=== PATIENT | female | born 1970 | race Caucasian/White ===

== ENCOUNTER 2020-05-05 09:00 | Outpatient (RCR) | payer MEDICARE, MEDICAID, SELFPAY | END 2020-05-06 23:55 | disposition home or self-care (01) | LOC: HO.PAOS 09:00 | PROVIDERS: Visit Provider Counselor Mental Health | DX: F33.2 Major depressive disorder, recurrent severe without psychotic features (principal); F40.10 Social phobia, unspecified; Z86.59 Personal history of other mental and behavioral disorders | CPT/HCPCS: 90832 ==

== ENCOUNTER 2021-01-03 13:07 | Outpatient (REF) | payer MEDICARE, MEDICAID, SELFPAY ==
--- NOTE | ~2021-01-03 | MM_ITS ---
EXAMINATION: MM SCREENING DIGITAL BREAST TOMOSYNTHESIS, BILATERAL CLINICAL INFORMATION: Screening. Asymptomatic. The lifetime risk of breast cancer based on the Tyrer-Cuzick Model is 12%. COMPARISON: Mammography: 01/01/2020, 02/15/2018; targeted left breast ultrasound 01/06/2020 TECHNIQUE: Digital breast tomosynthesis is performed in both the craniocaudal and mediolateral oblique views along with computer-aided detection (CAD). Synthesized 2D images are generated from the tomosynthesis. Additional exaggerated left CC view is provided. FINDINGS: The breasts are extremely dense, which lowers the sensitivity of mammography (ACR BI-RADS breast composition Category d). There are no significant masses, abnormal calcifications, or other abnormalities. The seventh o'clock position left breast is decreased in size from prior exam. The axilla and skin contours are unremarkable. MM/MM tomosynthesis screening BI IMPRESSION: 1. No mammographic evidence of malignancy. 2. Cyst 5:00 left breast decreased in size. ASSESSMENT: BI-RADS 2: Benign RECOMMENDATION: Routine annual mammography screening. This patient's information was entered into a reminder system with a target due date for their next mammogram.
--- NOTE | 2021-01-03 14:04 | ECG_ITS ---
Test Reason : MED MONITORING Blood Pressure : / mmHG Vent. Rate : 095 BPM Atrial Rate : 095 BPM P-R Int : 144 ms QRS Dur : 080 ms QT Int : 352 ms P-R-T Axes : 062 080 023 degrees QTc Int : 442 ms Normal sinus rhythm T wave abnormality, consider inferior ischemia Abnormal ECG When compared with ECG of 04-SEP-2018 08:52, No significant change was found Referred By: Frank Sorto Electronically Signed By:DAMIEN DEVINE MD
[2021-01-03 14:47] LABS: MANUAL DIFF FLAG NO
[2021-01-03 14:51] LABS: Basophils Percent Auto 0.5 % (0-2); Eosinophils Percent Auto 0.2 % (0-4); Hematocrit 41.7 % (37-47); Hemoglobin 13.8 g/dl (12.0-16.0); Imm Gran Abs Auto 0.01 X10*3/uL (0.00-0.03); Imm Gran Pct Auto 0.2 % (0.0-0.4); Lymphocytes Absolute Auto 1.2 X10*3/uL (1.2-4.9); Lymphocytes Percent Auto 18.9 % (20-40); Mean Corpuscular HGB Conc 33.1 g/dl (31.0-35.0); Mean Corpuscular Hemoglobin 29.8 pg (27.0-33.0); Mean Corpuscular Volume 90.1 fL (80-98); Monocytes Absolute Auto 0.4 X10*3/uL (0.1-1.2); Monocytes Percent Auto 5.6 % (2-11); Neutrophils Absolute Auto 4.7 X10*3/uL (2.0-8.3); Neutrophils Percent Auto 74.6 % (45-73); Platelet Count 227 X10*3/uL (160-400); Red Blood Count 4.63 X10*6/uL (4.20-5.50); Red Cell Distribution Width 12.6 % (11.0-16.0); White Blood Count 6.3 X10*3/uL (4.8-10.8)
[2021-01-03 15:18] LABS: Alanine Aminotransferase 15 U/L (0-31); Albumin Level 4.6 g/dL (3.5-5.0); Alkaline Phosphatase 50 U/L (39-117); Anion Gap 13 (12-20); Aspartate Amino Transferase 17 U/L (5-31); Bilirubin Total 0.2 mg/dL (0.0-1.0); Blood Urea Nitrogen 7 mg/dL (9-16); Calcium 9.6 mg/dL (8.4-10.2); Carbon Dioxide 25 mmol/L (22-29); Chloride 106 mmol/L (96-108); Cholesterol 226 mg/dL; Estimated Glomerular Filt Rate > 60; Glucose Random 110 mg/dL (60-115); HDL Cholesterol 36 mg/dL; LDL Cholesterol Calculated 169 mg/dl; Potassium 4.5 mmol/L (3.3-5.1); Sodium 139 mmol/L (135-145); Total Protein 7.1 g/dL (6.5-8.0); Triglycerides 107 mg/dL
[2021-01-03 15:42] LABS: Thyroid Stimulating Hormone 0.38 uIU/mL (0.32-4.0)
[2021-01-03 16:18] LABS: Folate > 20.0 ng/mL (> or = 4.0); Vitamin B12 1318 pg/mL (200-900)
== END 2021-01-03 13:08 | disposition home or self-care (01) ==
LOC: HO.MAMMO 13:07
PROVIDERS: Absent Provider Psychiatry & Neurology Psychiatry; PCP Physician Assistant; Visit Provider Physician Assistant
DX: Z12.31 Encounter for screening mammogram for malignant neoplasm of breast (principal); F34.1 Dysthymic disorder; Z51.81 Encounter for therapeutic drug level monitoring; Z79.899 Other long term (current) drug therapy
CPT/HCPCS: 36415; 77063; 77067; 80053; 80061; 82607; 82746; 84443; 85025; 93005

== ENCOUNTER → 2021-01-27 15:35 | Outpatient (REF) | payer MEDICARE, MEDICAID, SELFPAY ==
--- NOTE | 2021-01-27 15:47 | ECG_ITS ---
Test Reason : recent t wave changes Blood Pressure : / mmHG Vent. Rate : 088 BPM Atrial Rate : 088 BPM P-R Int : 156 ms QRS Dur : 080 ms QT Int : 360 ms P-R-T Axes : 069 077 060 degrees QTc Int : 435 ms Normal sinus rhythm Normal ECG When compared with ECG of 03-JAN-2021 14:10, Nonspecific T wave abnormality no longer evident in Inferior leads Referred By: Frank Sorto Electronically Signed By:DUSTY JACOME
[2021-01-27 17:04] LABS: Anion Gap 10 (12-20); Blood Urea Nitrogen 11 mg/dL (9-16); Calcium 9.3 mg/dL (8.4-10.2); Carbon Dioxide 26 mmol/L (22-29); Chloride 103 mmol/L (96-108); Estimated Average Glucose 94 mg/dL; Estimated Glomerular Filt Rate > 60; Glucose Fasting 105 mg/dL (60-99); Hemoglobin A1c % 4.9 %; Potassium 4.4 mmol/L (3.3-5.1); Sodium 135 mmol/L (135-145)
[2021-01-31 01:11] LABS: Nortriptyline 74 mcg/L (50-150)
== END ==
LOC: HO.CARD 15:35
PROVIDERS: Absent Provider Psychiatry & Neurology Psychiatry; PCP Physician Assistant; Visit Provider Psychiatry & Neurology Psychiatry
DX: F34.1 Dysthymic disorder (principal); Z79.899 Other long term (current) drug therapy
CPT/HCPCS: 80048; 80307; 80335; 81025; 83036; 93005

== ENCOUNTER 2021-01-28 14:15 | Outpatient (REF) | payer MEDICARE, MEDICAID, SELFPAY ==
[2021-01-28 14:36] LABS: UPreg QC Valid YES; Urine Pregnancy NEGATIVE (NEGATIVE)
[2021-01-28 15:03] LABS: Amphetamine Screen Urine Not Detected (Not Detect); Barbiturates, Urine Not Detected (Not Detect); Benzodiazepines Screen Urine Not Detected (Not Detect); Cannabinoid Screen Urine Not Detected (Not Detect); Cocaine Screen Urine Not Detected (Not Detect); Fentanyl, urine Not Detected (Not Detect); Opiate Screen Urine Not Detected (Not Detect); Phencyclidine Screen Urine Not Detected (Not Detect)
== END 2021-01-28 14:16 | disposition home or self-care (01) ==
LOC: HO.LAB 14:15
PROVIDERS: PCP Physician Assistant; Visit Provider Psychiatry & Neurology Psychiatry
DX: F33.2 Major depressive disorder, recurrent severe without psychotic features (principal)
CPT/HCPCS: 80307; 81025

== ENCOUNTER 2021-03-17 16:28 | Outpatient (REF) | payer MEDICARE, MEDICAID, SELFPAY ==
[2021-03-17 17:14] LABS: Lithium 0.44 mmol/L (0.60-1.20)
[2021-03-17 17:23] LABS: Anion Gap 12 (12-20); Blood Urea Nitrogen 11 mg/dL (9-16); Calcium 9.7 mg/dL (8.4-10.2); Carbon Dioxide 26 mmol/L (22-29); Chloride 103 mmol/L (96-108); Estimated Glomerular Filt Rate 57; Glucose Random 78 mg/dL (60-115); Potassium 4.3 mmol/L (3.3-5.1); Sodium 137 mmol/L (135-145)
[2021-03-21 05:57] LABS: Nortriptyline 104 mcg/L (50-150)
== END 2021-03-17 16:29 | disposition home or self-care (01) ==
LOC: HO.LAB 16:28
PROVIDERS: PCP Physician Assistant; Visit Provider Psychiatry & Neurology Psychiatry
DX: F34.1 Dysthymic disorder (principal); Z79.899 Other long term (current) drug therapy
CPT/HCPCS: 36415; 80048; 80178; 80335

== ENCOUNTER 2021-04-29 13:52 | Outpatient (REF) | payer MEDICARE, MEDICAID, SELFPAY ==
[2021-04-29 15:36] LABS: Alanine Aminotransferase 18 U/L (0-31); Albumin Level 4.5 g/dL (3.5-5.0); Alkaline Phosphatase 56 U/L (39-117); Anion Gap 12 (12-20); Aspartate Amino Transferase 17 U/L (5-31); Bilirubin Total 0.5 mg/dL (0.0-1.0); Blood Urea Nitrogen 13 mg/dL (9-16); Calcium 9.9 mg/dL (8.4-10.2); Carbon Dioxide 27 mmol/L (22-29); Chloride 103 mmol/L (96-108); Estimated Glomerular Filt Rate > 60; Glucose Random 88 mg/dL (60-115); Potassium 4.4 mmol/L (3.3-5.1); Sodium 138 mmol/L (135-145); Total Protein 7.4 g/dL (6.5-8.0)
[2021-04-29 15:57] LABS: Thyroid Stimulating Hormone 0.31 uIU/mL (0.32-4.0)
[2021-05-03 14:16] LABS: Nortriptyline 87 mcg/L (50-150)
== END 2021-04-29 13:53 | disposition home or self-care (01) ==
LOC: HO.LAB 13:52
PROVIDERS: PCP Physician Assistant; Visit Provider Psychiatry & Neurology Psychiatry
DX: F34.1 Dysthymic disorder (principal)
CPT/HCPCS: 36415; 80053; 80178; 80335; 84443

== ENCOUNTER → 2021-06-20 08:56 | Outpatient (BNVA) | payer MEDICARE, MEDICAID, SELFPAY | LOC: CF 11:22 | PROVIDERS: PCP Physician Assistant; Referring Provider Physician Assistant; Visit Provider Nurse Practitioner Family | DX: Z12.11 Encounter for screening for malignant neoplasm of colon (principal) | CPT/HCPCS: 99202 ==

== ENCOUNTER 2021-06-21 12:42 | Outpatient (REF) | payer MEDICARE, MEDICAID, SELFPAY ==
[2021-06-21 13:49] LABS: Lithium 0.79 mmol/L (0.60-1.20)
[2021-06-21 14:02] LABS: Alanine Aminotransferase 22 U/L (0-31); Albumin Level 4.6 g/dL (3.5-5.0); Alkaline Phosphatase 60 U/L (39-117); Anion Gap 13 (12-20); Aspartate Amino Transferase 20 U/L (5-31); Bilirubin Total 0.5 mg/dL (0.0-1.0); Blood Urea Nitrogen 11 mg/dL (9-16); Calcium 10.5 mg/dL (8.4-10.2); Carbon Dioxide 27 mmol/L (22-29); Chloride 103 mmol/L (96-108); Estimated Glomerular Filt Rate > 60; Glucose Fasting 96 mg/dL (60-99); Potassium 4.5 mmol/L (3.3-5.1); Sodium 138 mmol/L (135-145); Total Protein 7.5 g/dL (6.5-8.0)
[2021-06-21 14:23] LABS: Thyroid Stimulating Hormone 0.03 uIU/mL (0.32-4.0)
[2021-06-21 15:37] LABS: Folate > 20.0 ng/mL (> or = 4.0); Vitamin B12 966 pg/mL (200-900)
[2021-06-26 08:06] LABS: Nortriptyline 105 mcg/L (50-150)
[2021-06-26 16:17] LABS: Vitamin D 25-OH, D2 <4 ng/mL; Vitamin D 25-OH, D3 24 ng/mL; Vitamin D 25-OH, Total 24 ng/mL (30-100)
== END 2021-06-21 12:43 | disposition home or self-care (01) ==
LOC: HO.LAB 12:42
PROVIDERS: Absent Provider Nurse Practitioner Family; PCP Physician Assistant; Visit Provider Psychiatry & Neurology Psychiatry
DX: Z51.81 Encounter for therapeutic drug level monitoring (principal); R19.7 Diarrhea, unspecified; E55.9 Vitamin D deficiency, unspecified; E03.9 Hypothyroidism, unspecified; F32.A Depression, unspecified; Z79.899 Other long term (current) drug therapy
CPT/HCPCS: 36415; 80053; 80178; 80335; 82306; 82607; 82746; 84443

== ENCOUNTER 2021-08-31 12:38 | Outpatient (REF) | payer MEDICARE, MEDICAID, SELFPAY ==
[2021-08-31 14:12] LABS: Estimated Average Glucose 103 mg/dL; Hemoglobin A1c % 5.2 %
[2021-08-31 14:14] LABS: Alanine Aminotransferase 25 U/L (0-31); Albumin Level 4.6 g/dL (3.5-5.0); Alkaline Phosphatase 63 U/L (39-117); Anion Gap 10 (12-20); Aspartate Amino Transferase 20 U/L (5-31); Bilirubin Total 0.3 mg/dL (0.0-1.0); Blood Urea Nitrogen 13 mg/dL (9-16); Calcium 10.1 mg/dL (8.4-10.2); Carbon Dioxide 29 mmol/L (22-29); Chloride 102 mmol/L (96-108); Cholesterol 280 mg/dL; Estimated Glomerular Filt Rate 50; Glucose Random 77 mg/dL (60-115); HDL Cholesterol 59 mg/dL; LDL Cholesterol Calculated 193 mg/dl; Potassium 4.5 mmol/L (3.3-5.1); Sodium 136 mmol/L (135-145); Total Protein 7.5 g/dL (6.5-8.0); Triglycerides 140 mg/dL
[2021-08-31 14:35] LABS: Free T4 (Free Thyroxine) 1.01 ng/dL (0.71-1.85); Thyroid Stimulating Hormone 8.41 uIU/mL (0.32-4.0)
[2021-08-31 14:40] LABS: Folate 18.6 ng/mL (> or = 4.0); Vitamin B12 726 pg/mL (200-900)
[2021-09-06 15:51] LABS: Nortriptyline 155 mcg/L (50-150)
== END 2021-08-31 12:39 | disposition home or self-care (01) ==
LOC: HO.LAB 12:38
PROVIDERS: PCP Physician Assistant; Visit Provider Psychiatry & Neurology Psychiatry
DX: F34.1 Dysthymic disorder (principal); Z51.81 Encounter for therapeutic drug level monitoring; Z79.899 Other long term (current) drug therapy
CPT/HCPCS: 36415; 80053; 80061; 80178; 80335; 82607; 82746; 83036; 84439; 84443

== ENCOUNTER 2021-11-09 11:52 | Day surgery (SDC) | payer MEDICARE, MEDICAID, SELFPAY ==
[2021-11-03 10:42] VITALS: BMI 24.9
--- NOTE | 2021-11-08 12:09 | P.CONAN_ITS ---
Documented by User: Concepcion Shah NP 11/08/21 12:10 HPI - Anesthesia Eval Consult details Narrative: 51yo F for Colonoscopy *Malignant Hyperthermia* PMFSH Active Problems Active Problems: All Active Problems (Updated 11/03/21 @ 10:36 by Lidia Davidson RN) Medicare annual wellness visit, initial (Acute ~03/23/21) Hypothyroidism (Acute) Colon cancer screening (Acute) Moderate depressive disorder (Acute) Severe anxiety (Acute) Cervical cancer screening declined (Acute) HLD (hyperlipidemia) (Acute) Past Medical History Medical History History of electroconvulsive therapy Malignant hyperthermia due to anesthesia Family History Family History Father Stroke Mother Ovarian cancer Brother Asthma Sister Hyperthyroidism Surgical History Surgical History History of open reduction and internal fixation (ORIF) procedure Hx of parotidectomy Social History Social History Housing: House Alcohol intake: former Patient Tobacco Use Status: Former Tobacco user Quit Date: 2019 e-Cigarette/Vaping Use: Never Used Second Hand Smoke Exposure: No Use of substances other than those prescribed or required for medical reasons: No Substance Use Type: Prescription Drugs Are you DNR?: No Advance Directives: No Advance Directives Information Provided: Yes Advance Directives on File: No service: No Current occupational status: unemployed Cognitive needs: No Hearing needs: No Vision needs: No Meds Allergies Allergy/AdvReac Type Severity Reaction Status Date / Time Anesthetics - Amide Type - Allergy Severe HYPERTHERMIA Verified 11/03/21 10:36 Select A FROM [ANESTHETICS - AMIDE TYPE] GENERAL ANESTHESIA Anesthetics - Ameena Type- Allergy Severe HYPERTHERMIA Verified 11/03/21 10:36 Parabens FROM [ANESTHETICS - AMEENA TYPE- GENERAL PARABENS] ANESTHESIA General anesthesias Allergy Severe malignant Verified 11/03/21 10:36 hyperthermia-age 9 at [facility],no [facility] A done[place] [place] Medications Medication Instructions Recorded Confirmed Last Taken Type buprenorphine 2 mg-naloxone 0.5 mg 1 film buccal DAILY 02/26/20 09/19/21 11/09/21 History sublingual film (Suboxone) ergocalciferol (vitamin D2) 1,250 1,250 mcg PO QWEEK 09/19/21 09/19/21 Unknown History mcg (50,000 unit) capsule esketamine 84 mg (28 mg x 3) nasal 0 mg intranasal 09/19/21 09/19/21 Unknown History spray (Spravato) lithium carbonate 450 mg 900 mg PO BEDTIME 09/19/21 09/19/21 Unknown History tablet,extended release nortriptyline 50 mg capsule 100 mg PO 09/19/21 09/19/21 Unknown History Exam Exam Date and Time: November 08, 2021 1209 Height,Weight and Vital Signs: Height 5 ft 8 in Weight 74.389 kg Pertinent Lab Results Pertinent Lab Results: Laboratory Tests 01/03/21 08/31/21 14:25 12:55 WBC 6.3 Hgb 13.8 Hct 41.7 Plt Count 227 Sodium 136 Potassium 4.5 Chloride 102 Carbon Dioxide 29 BUN 13 Creatinine 1.14 Narrative Narrative: EKG 01/2021 Vent. Rate : 088 BPM ? ? Atrial Rate : 088 BPM ?? P-R Int : 156 ms? QRS Dur : 080 ms ? ? QT Int : 360 ms ? ? ? P-R-T Axes : 069 077 060 degrees ?? QTc Int : 435 ms ? Normal sinus rhythm Normal ECG When compared with ECG of 03-JAN-2021 14:10, Nonspecific T wave abnormality no longer evident in Inferior leads Assessment and Plan Assessment Anesthesia Assessment: Chart Reviewed Documented by User: Annie Dee MD 11/09/21 13:23 [facility] Past Medical History Medical History History of electroconvulsive therapy Malignant hyperthermia due to anesthesia Family History Family History Father Stroke Mother Ovarian cancer Brother Asthma Sister Hyperthyroidism Family history of problems with anesthesia: No (MH precautions ) Surgical History Surgical History History of open reduction and internal fixation (ORIF) procedure Hx of parotidectomy History of Problems with Anesthesia: Yes (Malignant hyperthermia history aged 9 yrs old) Social History Social History Housing: House Alcohol intake: former Patient Tobacco Use Status: Former Tobacco user Quit Date: 2019 e-Cigarette/Vaping Use: Never Used Second Hand Smoke Exposure: No Use of substances other than those prescribed or required for medical reasons: No Substance Use Type: Prescription Drugs Are you DNR?: No Advance Directives: No Advance Directives Information Provided: Yes Advance Directives on File: No service: No Current occupational status: unemployed Cognitive needs: No Hearing needs: No Vision needs: No Meds Allergies Allergy/AdvReac Type Severity Reaction Status Date / Time Anesthetics - Amide Type - Allergy Severe HYPERTHERMIA Verified 11/03/21 10:36 Select A FROM [ANESTHETICS - AMIDE TYPE] GENERAL ANESTHESIA Anesthetics - Ameena Type- Allergy Severe HYPERTHERMIA Verified 11/03/21 10:36 Parabens FROM [ANESTHETICS - AMEENA TYPE- GENERAL PARABENS] ANESTHESIA General anesthesias Allergy Severe malignant Verified 11/03/21 10:36 hyperthermia-age 9 at [facility],no T and A done,[facility] [place] Medications Medication Instructions Recorded Confirmed Last Taken Type buprenorphine 2 mg-naloxone 0.5 mg 1 film buccal DAILY 02/26/20 09/19/21 11/09/21 History sublingual film (Suboxone) ergocalciferol (vitamin D2) 1,250 1,250 mcg PO QWEEK 09/19/21 09/19/21 Unknown History mcg (50,000 unit) capsule esketamine 84 mg (28 mg x 3) nasal 0 mg intranasal 09/19/21 09/19/21 Unknown History spray (Spravato) lithium carbonate 450 mg 900 mg PO BEDTIME 09/19/21 09/19/21 Unknown History tablet,extended release nortriptyline 50 mg capsule 100 mg PO 09/19/21 09/19/21 Unknown History Exam Height,Weight and Vital Signs: Height 5 ft 8 in Weight 74.389 kg Vital Signs Temp Pulse Resp BP Pulse Ox O2 Del Method 11/09/21 12:09 97.2 F 109 H 16 134/89 98 Room Air Airway Mallampati Class: III TM Dist: >3cm Neck ROM: Full Loose/Missing/Broken Teeth: Yes (Poor dentition. Many missing) Heart: RRR Lungs: CTAB Assessment and Plan Assessment Anesthesia Assessment: Anesthesia Plan Discussed Final Anesthetic Review Family History of Problems with Anesthesia: No (MH precautions ) History of Problems with Anesthesia: Yes (Malignant hyperthermia history aged 9 yrs old) NPO: Yes ASA Class: III Final Preanesthetic Review: No Changes in Pt Med Stat, Meds/Allgs Chart Reviewed, Consent Obtained/Reviewed and Anes Risks/Benef Reviewed Patient Risk: Intermediate Procedure Risk: Low Assessment/Block/Sedation in SS: Assess/Block/Sedation-SS Anesthetic Plan Anesthetic Plan: MAC: Disposition: Standard PACU
--- NOTE | 2021-11-09 12:08 | P.HPSUR_ITS ---
Pre-Procedural Eval Section A Date of Service: 11/09/21 Section B Chief Complaint: screening Relevant Family History (Specify if Yes): No Relevant Social History: None Present Medications: see Short Stay Collaborative assessment Medical History: Significant History (History of electroconvulsive therapy Malignant hyperthermia due to anesthesia) History of Previous Operations: Relevant previous surgery/procedure and date(s) (History of open reduction and internal fixation (ORIF) procedure Hx of parotidectomy) Allergies: Allergies Allergy/AdvReac Type Severity Reaction Status Date / Time Anesthetics - Amide Type - Allergy Severe HYPERTHERMIA Verified 11/03/21 10:36 Select A FROM [ANESTHETICS - AMIDE TYPE] GENERAL ANESTHESIA Anesthetics - Ameena Type- Allergy Severe HYPERTHERMIA Verified 11/03/21 10:36 Parabens FROM [ANESTHETICS - AMEENA TYPE- GENERAL PARABENS] ANESTHESIA General anesthesias Allergy Severe malignant Verified 11/03/21 10:36 hyperthermia-age 9 at [facility],no T [facility] A done,[facility] [place] Review of Systems Sugical H&P ROS: Negative: Constitution, Cardiovascular, Respiratory, Neurological, Psychiatric, Hem-Onc, Allergic/Immunologic, Gastrointestinal, Genitourinary, Musculoskeletal, Integumentary, Endocrine and Eyes/Ears/Nose/Throat Exam Surgical H&P Exam: Normal: HEENT, Normal: Heart, Normal: Lungs, Normal: Extremities, Normal: Abdomen, Normal: Skin and Normal: Neurological Plan I have reviewed the history and physical and performed a pertinent physical examination on my patient. No changes have occurred unless specified.
[2021-11-09 12:09] VITALS: BP 134/89; PULSE 109; RESP 16; TEMP 36.2; O2SAT 98
--- NOTE | 2021-11-09 12:09 | P.BOP_ITS ---
Brief Operative Note Date of Service: 11/09/21 Pre-op diagnosis: colon screening Post-op diagnosis: same Procedure: see op note Surgeon: Yusef Parada MD Anesthesia: MAC Was an Commutator V Ring Assembler used for this Procedure?: No Estimated blood loss (mL): 0 Condition: stable Disposition: PACU
--- NOTE | 2021-11-09 14:13 | P.OP_ITS ---
Operative Note Operative Note Date of Service: 11/09/21 Narrative: Operative Information Procedure Description: Colonoscopy Indication: screening Anesthesia: MAC COLONOSCOPY Instrument: Olympus variable stiffness pediatric scope 190L Colonoscopy Monitoring: Vital signs and clinical assessment, continuous EKG monitoring, Pulse oximetry, Carbon Dioxide monitoring and blood pressure monitoring were done throughout the procedure. Colon withdrawal time was 21 minutes. Procedure: The patient was placed in the left lateral decubitis position and pre-procedure medications were administered. After a digital rectal examination of the ano-rectum, the video colonoscope was inserted into the rectum and advanced through the colon to the cecum/TI. The colonoscope was slowly withdrawn in a retrograde panoramic fashion and the colon mucosa was carefully examined including a retroflexed view of the rectum. Findings and interventions are described below. Procedure Difficulty: easy Findings: Terminal Ileum-normal Cecum: 3-4 mm sessile polyp removed with cold forceps Ascending Colon: normal Transverse Colon -normal Descending Colon:normal Sigmoid Colon: 10-12 mm semi pedunculated polyp removed with hot snare and edges ablated with soft tip coag Rectum: Retroflexion with small internal hemorrhoids, grade I Anorectum - normal Colon preparation: [place] Bowel Preparation Scale Right colon; 2 Transverse colon: 2 Left colon; 1 (0 = Unprepared colon segment with mucosa not seen due to solid stool that cannot be cleared. 1 = Portion of mucosa of the colon segment seen, but other areas of the colon segment not well seen due to staining, residual stool and/or opaque liquid. 2 = Minor amount of residual staining, small fragments of stool and/or opaque liquid, but mucosa of colon segment seen well. 3 = Entire mucosa of colon segment seen well with no residual staining, small fragments of stool or opaque liquid) Impression and Post Procedure Diagnosis: polyps internal hemorrhoids Plan: High fiber diet leaflet Avoid straining at stool, epsom salts and sitz bath, anusol supps or cream Repeat Colonoscopy in 8-12 months due to fair to poor left sided prep or earlier if clinically indicated Above findings were reviewed with the patient and relevant handouts were provided if indicated.
[2021-11-09 14:15] VITALS: BP 84/50; PULSE 76; RESP 16; TEMP 36.1; O2SAT 97
[2021-11-09 14:30] VITALS: BP 111/74; PULSE 73; RESP 16; TEMP 36.1; O2SAT 97
== END 2021-11-09 15:22 | disposition home or self-care (01) ==
PROVIDERS: PCP Physician Assistant; Visit Provider Internal Medicine Gastroenterology
PROC: 0DJD8ZZ Inspection of Lower Intestinal Tract, Via Natural or Artificial Opening Endoscopic (ICD-10-PCS; CPT 45378; principal; 2021-11-09 13:00)
DX: Z12.11 Encounter for screening for malignant neoplasm of colon (principal); D12.5 Benign neoplasm of sigmoid colon; K63.5 Polyp of colon; K64.0 First degree hemorrhoids; F32.1 Major depressive disorder, single episode, moderate; F41.1 Generalized anxiety disorder; E55.9 Vitamin D deficiency, unspecified; Z79.899 Other long term (current) drug therapy; Z85.20 Personal history of malignant neoplasm of unspecified respiratory organ; Z87.891 Personal history of nicotine dependence; E78.5 Hyperlipidemia, unspecified
CPT/HCPCS: 45385; 45380; 88305

== ENCOUNTER 2022-01-04 13:21 | Outpatient (REF) | payer MEDICARE, MEDICAID, SELFPAY ==
--- NOTE | ~2022-01-04 | MM_ITS ---
EXAMINATION: MM SCREENING DIGITAL BREAST TOMOSYNTHESIS, BILATERAL CLINICAL INFORMATION: Screening. Asymptomatic. The lifetime risk of breast cancer based on the Tyrer-Cuzick Model is 10%. COMPARISON: Mammography: 01/03/2021, 01/01/2020, 02/15/2018; targeted left breast ultrasound 01/06/2020 TECHNIQUE: Digital breast tomosynthesis is performed in both the craniocaudal and mediolateral oblique views along with computer-aided detection (CAD). Synthesized 2D images are generated from the tomosynthesis. FINDINGS: The breasts are extremely dense, which lowers the sensitivity of mammography (ACR BI-RADS breast composition Category d). There are no significant masses, abnormal calcifications, or other abnormalities. Parenchymal pattern is similar to prior studies. There is no developing density or architectural abnormality. Breast tissue composition borders on heterogeneously dense. The axilla and skin contours are unremarkable. No significant changes. MM/MM tomosynthesis screening BI IMPRESSION: No mammographic evidence of malignancy. ASSESSMENT: BI-RADS 1: Negative RECOMMENDATION: Routine annual mammography screening. This patient's information was entered into a reminder system with a target due date for their next mammogram.
== END 2022-01-04 13:22 | disposition home or self-care (01) ==
LOC: HO.MAMMO 13:21
PROVIDERS: PCP Physician Assistant; Visit Provider Physician Assistant
DX: Z12.31 Encounter for screening mammogram for malignant neoplasm of breast (principal)
CPT/HCPCS: 77063; 77067

== ENCOUNTER → 2022-03-24 11:32 | Outpatient (BNVA) | payer OTHER, SELFPAY | PROVIDERS: PCP Physician Assistant; Visit Provider Psychiatry & Neurology Psychiatry | DX: F33.9 Major depressive disorder, recurrent, unspecified (principal); F40.10 Social phobia, unspecified; F45.22 Body dysmorphic disorder | CPT/HCPCS: 90833; 99212 ==

== ENCOUNTER 2022-03-25 10:18 | Outpatient (REF) | payer OTHER, SELFPAY ==
[2022-03-25 11:26] LABS: Cholesterol 168 mg/dL; HDL Cholesterol 52 mg/dL; LDL Cholesterol Calculated 103 mg/dl; Triglycerides 66 mg/dL
== END 2022-03-25 10:19 | disposition home or self-care (01) ==
LOC: HO.LAB 10:18
PROVIDERS: PCP Physician Assistant; Visit Provider Physician Assistant
DX: E03.9 Hypothyroidism, unspecified (principal); E78.2 Mixed hyperlipidemia
CPT/HCPCS: 36415; 80061; 84443

== ENCOUNTER → 2022-04-26 15:12 | Outpatient (BNVA) | payer OTHER, SELFPAY | PROVIDERS: PCP Physician Assistant; Visit Provider Psychiatry & Neurology Psychiatry | DX: F45.22 Body dysmorphic disorder (principal); F40.10 Social phobia, unspecified; F33.9 Major depressive disorder, recurrent, unspecified | CPT/HCPCS: Q3014 ==

== ENCOUNTER → 2022-06-12 12:07 | Outpatient (BNVA) | payer OTHER, SELFPAY | PROVIDERS: PCP Physician Assistant; Visit Provider Psychiatry & Neurology Psychiatry | DX: F33.9 Major depressive disorder, recurrent, unspecified (principal); F45.22 Body dysmorphic disorder; F40.10 Social phobia, unspecified | CPT/HCPCS: 99212 ==

== ENCOUNTER → 2022-07-26 13:00 | Outpatient (BNVA) | payer OTHER, SELFPAY | PROVIDERS: PCP Physician Assistant; Visit Provider Psychiatry & Neurology Psychiatry | DX: F33.2 Major depressive disorder, recurrent severe without psychotic features (principal); F45.22 Body dysmorphic disorder; F40.10 Social phobia, unspecified | CPT/HCPCS: 90833; Q3014 ==

== ENCOUNTER → 2022-09-26 14:34 | Outpatient (BNVA) | payer OTHER, SELFPAY | PROVIDERS: PCP Physician Assistant; Visit Provider Psychiatry & Neurology Psychiatry | DX: F33.9 Major depressive disorder, recurrent, unspecified (principal); F45.22 Body dysmorphic disorder; F40.10 Social phobia, unspecified | CPT/HCPCS: 99212 ==

== ENCOUNTER 2022-09-27 12:28 | Outpatient (REF) | payer OTHER, SELFPAY ==
--- NOTE | 2022-09-27 12:32 | ECG_ITS ---
Test Reason : hypothyroid Blood Pressure : / mmHG Vent. Rate : 059 BPM Atrial Rate : 059 BPM P-R Int : 148 ms QRS Dur : 082 ms QT Int : 408 ms P-R-T Axes : 049 069 057 degrees QTc Int : 403 ms Sinus bradycardia Otherwise normal ECG When compared with ECG of 27-JAN-2021 15:58, Vent. rate has decreased BY 29 BPM Referred By: Frank Sorto Electronically Signed By:DAMIEN DEVINE MD
[2022-09-27 12:47] LABS: MANUAL DIFF FLAG NO
[2022-09-27 13:32] LABS: Basophils Absolute Auto 0.1 X10*3/uL (0.0-0.2); Basophils Percent Auto 0.9 % (0-2); Eosinophils Percent Auto 0.2 % (0-4); Hematocrit 44.7 % (37.0-47.0); Hemoglobin 14.8 g/dl (12.0-16.0); Imm Gran Abs Auto 0.02 X10*3/uL (0.00-0.03); Imm Gran Pct Auto 0.3 % (0.0-0.4); Lymphocytes Absolute Auto 1.7 X10*3/uL (1.2-4.9); Lymphocytes Percent Auto 29.4 % (20-40); Mean Corpuscular HGB Conc 33.1 g/dl (31.0-35.0); Mean Corpuscular Hemoglobin 31.8 pg (27.0-33.0); Mean Corpuscular Volume 96.1 fL (80.0-98.0); Mean Platelet Volume 9.8 fL (9.4-12.3); Monocytes Absolute Auto 0.4 X10*3/uL (0.1-1.2); Monocytes Percent Auto 6.1 % (2-11); Neutrophils Absolute Auto 3.7 x10*3/uL (2.0-8.3); Neutrophils Percent Auto 63.1 % (45-73); Platelet Count 232 X10*3/uL (160-400); Red Blood Count 4.65 X10*6/uL (4.20-5.50); Red Cell Distribution Width 12.7 % (11.0-16.0); White Blood Count 5.8 X10*3/uL (4.8-10.8)
[2022-09-27 13:43] LABS: Estimated Average Glucose 100 mg/dL; Hemoglobin A1c % 5.1 %
[2022-09-27 14:22] LABS: Alanine Aminotransferase 27 U/L (0-31); Albumin Level 4.8 g/dL (3.5-5.0); Alkaline Phosphatase 50 U/L (39-117); Anion Gap 13 (12-20); Aspartate Amino Transferase 28 U/L (5-31); Bilirubin Total 0.6 mg/dL (0.0-1.0); Blood Urea Nitrogen 14 mg/dL (9-16); Calcium 9.7 mg/dL (8.4-10.2); Carbon Dioxide 27 mmol/L (22-29); Chloride 106 mmol/L (96-108); Estimated Glomerular Filt Rate > 60; Glucose Fasting 101 mg/dL (60-99); Glucose Random 101 mg/dL (60-115); Potassium 4.6 mmol/L (3.3-5.1); Sodium 141 mmol/L (135-145); Total Protein 7.2 g/dL (6.5-8.0)
[2022-09-27 14:40] LABS: Folate 17.2 ng/mL (> or = 4.0); Vitamin B12 772 pg/mL (200-900)
[2022-09-27 17:19] LABS: Free T4 (Free Thyroxine) 1.06 ng/dL (0.71-1.85)
== END 2022-09-27 12:29 | disposition home or self-care (01) ==
LOC: HO.LAB 12:28
PROVIDERS: PCP Physician Assistant; Visit Provider Psychiatry & Neurology Psychiatry
DX: E03.9 Hypothyroidism, unspecified (principal); E78.2 Mixed hyperlipidemia; F33.9 Major depressive disorder, recurrent, unspecified; F40.10 Social phobia, unspecified
CPT/HCPCS: 36415; 80053; 82607; 82746; 83036; 84439; 84443; 85025; 93005

== ENCOUNTER → 2022-11-14 13:22 | Outpatient (BNVA) | payer OTHER, SELFPAY | PROVIDERS: Visit Provider Nurse Practitioner Family | DX: Z01.818 Encounter for other preprocedural examination (principal); Z86.010 Personal history of colon polyps | CPT/HCPCS: 99212 ==

== ENCOUNTER 2023-01-10 13:21 | Outpatient (REF) | payer OTHER, SELFPAY | END 2023-01-10 13:22 | disposition home or self-care (01) | LOC: HO.MAMMO 13:21 | PROVIDERS: Visit Provider Physician Assistant | DX: Z12.31 Encounter for screening mammogram for malignant neoplasm of breast (principal) | CPT/HCPCS: 77063; 77067 ==

== ENCOUNTER → 2023-01-10 13:30 | Outpatient (BNV) | payer OTHER, SELFPAY | PROVIDERS: Visit Provider Radiology Diagnostic Radiology | DX: Z12.31 Encounter for screening mammogram for malignant neoplasm of breast (principal) | CPT/HCPCS: 77063; 77067 ==

== ENCOUNTER 2023-01-16 09:26 | Day surgery (SDC) | payer OTHER, SELFPAY ==
[2023-01-12 11:39] VITALS: BMI 23.6
--- NOTE | 2023-01-16 09:08 | P.CONAN_ITS ---
HPI - Anesthesia Eval Consult details Narrative: colonoscopy Malignant Hyperthermia hystory PMFSH Active Problems Active Problems: All Active Problems (Updated 11/14/22 @ 18:28 by JUDIE HerreraDUC) Tubulovillous adenoma (Acute) Opiate dependence (Acute) Tobacco dependence (Acute) Medicare annual wellness visit, subsequent (Acute) Body dysmorphic disorder (Acute) Social anxiety disorder (Acute) Major depression, recurrent, chronic (Acute) Medicare annual wellness visit, initial (Acute ~03/23/21) Hypothyroidism (Acute) Colon cancer screening (Acute) Moderate depressive disorder (Acute) Severe anxiety (Acute) Cervical cancer screening declined (Acute) HLD (hyperlipidemia) (Acute) Past Medical History Medical History (Updated 11/14/22 @ 18:28 by WINIFRED Herrera) Body dysmorphic disorder History of electroconvulsive therapy Major depression, recurrent, chronic Malignant hyperthermia due to anesthesia Social anxiety disorder Tubulovillous adenoma Family History Family History Father Stroke Mother Ovarian cancer Brother Asthma Sister Hyperthyroidism Family history of problems with anesthesia: No (MH precautions ) Surgical History Surgical History History of open reduction and internal fixation (ORIF) procedure Hx of colonoscopy Hx of parotidectomy History of Problems with Anesthesia: Yes (Malignant hyperthermia history aged 9 yrs old) Social History Social History Housing: House Alcohol intake: former Patient Tobacco Use Status: Former Tobacco user Quit Date: 2019 e-Cigarette/Vaping Use: Never Used Second Hand Smoke Exposure: No Substance Use Type: Prescription Drugs service: No Current occupational status: unemployed Cognitive needs: No Hearing needs: No Vision needs: No Meds Allergies Allergy/AdvReac Type Severity Reaction Status Date / Time Anesthetics - Amide Type - Allergy Severe Hyperthermia Verified 11/14/22 13:34 Select A from [ANESTHETICS - AMIDE TYPE] general anesthesia Anesthetics - Ameena Type- Allergy Severe hyperthermia Verified 11/14/22 13:34 Parabens from [ANESTHETICS - AMEENA TYPE- general PARABENS] anesthesia General anesthesias Allergy Severe malignant Verified 11/14/22 13:34 hyperthermia-age 9 at T [facility] A,no T and A done,[facility] [place] Medications Medication Instructions Recorded Confirmed Last Taken Type esketamine 84 mg (28 mg x 3) nasal 0 mg intranasal 09/19/21 09/26/22 Unknown History spray (Spravato) buprenorphine 8 mg-naloxone 2 mg 10 mg sublingual DAILY 06/12/22 01/12/23 Unknown History sublingual film Exam Exam Date and Time: January 16, 2023 0908 Height,Weight and Vital Signs: Height 5 ft 8 in Weight 70.307 kg Airway Mallampati Class: II TM Dist: >3cm Neck ROM: Limited Heart: rrr Lungs: cta Assessment and Plan Assessment Anesthesia Assessment: Anesthesia Plan Discussed and Chart Reviewed Final Anesthetic Review Family History of Problems with Anesthesia: No (MH precautions ) History of Problems with Anesthesia: Yes (Malignant hyperthermia history aged 9 yrs old) NPO: Yes ASA Class: III Final Preanesthetic Review: No Changes in Pt Med Stat, Meds/Allgs Chart Reviewed, Consent Obtained/Reviewed and Anes Risks/Benef Reviewed Patient Risk: Intermediate Procedure Risk: Intermediate Anesthetic Plan Anesthetic Plan: MAC: and Agree w/ Assess. and Plan Disposition: Standard PACU
[2023-01-16 09:56] VITALS: BP 113/70; PULSE 78; RESP 18; TEMP 36.4; O2SAT 96
--- NOTE | 2023-01-16 10:39 | MHC.SHP ---
Pre-Procedural Eval Section A Date of Service: 01/16/23 Section B Chief Complaint: screening Relevant Family History (Specify if Yes): No Relevant Social History: None Present Medications: see Short Stay Collaborative assessment Medical History: Significant History (Body dysmorphic disorder History of electroconvulsive therapy Major depression, recurrent, chronic Malignant hyperthermia due to anesthesia Social anxiety disorder Tubulovillous adenoma) History of Previous Operations: Relevant previous surgery/procedure and date(s) (History of open reduction and internal fixation (ORIF) procedure Hx of colonoscopy Hx of parotidectomy) Allergies: Allergies Allergy/AdvReac Type Severity Reaction Status Date / Time Anesthetics - Amide Type - Allergy Severe Hyperthermia Verified 11/14/22 13:34 Select A from [ANESTHETICS - AMIDE TYPE] general anesthesia Anesthetics - Ameena Type- Allergy Severe hyperthermia Verified 11/14/22 13:34 Parabens from [ANESTHETICS - AMEENA TYPE- general PARABENS] anesthesia General anesthesias Allergy Severe malignant Verified 11/14/22 13:34 hyperthermia-age 9 at [facility] A,no T and A done,[facility] [place] Review of Systems Sugical H&P ROS: Negative: Constitution, Cardiovascular, Respiratory, Neurological, Psychiatric, Hem-Onc, Allergic/Immunologic, Gastrointestinal, Genitourinary, Musculoskeletal, Integumentary, Endocrine and Eyes/Ears/Nose/Throat Exam Surgical H&P Exam: Normal: HEENT, Normal: Heart, Normal: Lungs, Normal: Extremities, Normal: Abdomen, Normal: Skin and Normal: Neurological Plan Diagnosis/Plan: Unchanged I have reviewed the history and physical and performed a pertinent physical examination on my patient. No changes have occurred unless specified. Time Spent With Patient Time: Total time managing care of this patient today ____ minutes.
--- NOTE | 2023-01-16 10:59 | P.OP_ITS ---
Operative Note Operative Note Date of Service: 01/16/23 Narrative: Operative Information Procedure Description: Colonoscopy Indication: hx of polyps Anesthesia: MAC COLONOSCOPY Instrument: Olympus variable stiffness pediatric scope 190L Colonoscopy Monitoring: Vital signs and clinical assessment, continuous EKG monitoring, Pulse oximetry, Carbon Dioxide monitoring and blood pressure monitoring were done throughout the procedure. Colon withdrawal time was 10 minutes. Procedure: The patient was placed in the left lateral decubitis position and pre-procedure medications were administered. After a digital rectal examination of the ano-rectum, the video colonoscope was inserted into the rectum and advanced through the colon to the cecum/TI. The colonoscope was slowly withdrawn in a retrograde panoramic fashion and the colon mucosa was carefully examined including a retroflexed view of the rectum. Findings and interventions are described below. Procedure Difficulty: easy Findings: Terminal Ileum-normal Cecum:normal Ascending Colon: normal Transverse Colon -normal Descending Colon:normal Sigmoid Colon: normal Rectum: Retroflexion with small internal hemorrhoids, grade I with skin tag Anorectum - normal Colon preparation: [place] Bowel Preparation Scale Right colon; 2 Transverse colon: 2 Left colon; 2 (0 = Unprepared colon segment with mucosa not seen due to solid stool that cannot be cleared. 1 = Portion of mucosa of the colon segment seen, but other areas of the colon segment not well seen due to staining, residual stool and/or opaque liquid. 2 = Minor amount of residual staining, small fragments of stool and/or opaque liquid, but mucosa of colon segment seen well. 3 = Entire mucosa of colon segment seen well with no residual staining, small fragments of stool or opaque liquid) Impression and Post Procedure Diagnosis: internal hemorrhoids Plan: High fiber diet leaflet Avoid straining at stool, epsom salts and sitz bath, anusol supps or cream Repeat Colonoscopy in 5 years due to prior hx of tubulovillous adenoma or earlier if clinically indicated Above findings were reviewed with the patient and relevant handouts were provided if indicated.
[2023-01-16 11:30] VITALS: BP 85/52; PULSE 62; RESP 16; TEMP 36.4; O2SAT 98
[2023-01-16 11:45] VITALS: BP 108/68; PULSE 69; RESP 16; TEMP 36.3; O2SAT 99
== END 2023-01-16 12:16 | disposition home or self-care (01) ==
PROVIDERS: PCP Physician Assistant; Visit Provider Internal Medicine Gastroenterology
PROC: 0DJD8ZZ Inspection of Lower Intestinal Tract, Via Natural or Artificial Opening Endoscopic (ICD-10-PCS; CPT 45378; principal; 2023-01-16 11:00)
DX: Z12.11 Encounter for screening for malignant neoplasm of colon (principal); Z86.010 Personal history of colon polyps; K64.0 First degree hemorrhoids; K64.4 Residual hemorrhoidal skin tags; Z88.4 Allergy status to anesthetic agent; F33.9 Major depressive disorder, recurrent, unspecified; F40.10 Social phobia, unspecified; F45.22 Body dysmorphic disorder; E78.5 Hyperlipidemia, unspecified; Z79.899 Other long term (current) drug therapy; Z87.891 Personal history of nicotine dependence
CPT/HCPCS: G0105

== ENCOUNTER → 2023-01-16 09:26 | Outpatient (BNV) | payer OTHER, SELFPAY | PROVIDERS: PCP Physician Assistant; Visit Provider Internal Medicine Gastroenterology | DX: Z12.11 Encounter for screening for malignant neoplasm of colon (principal); Z86.010 Personal history of colon polyps; K64.0 First degree hemorrhoids | CPT/HCPCS: G0105 ==

== ENCOUNTER 2023-02-02 14:49 | Outpatient (AMB) | payer OTHER, SELFPAY ==
--- NOTE | 2023-02-02 12:43 | MHC.OFFVISPS ---
Intake Intake Visit Reasons: depression Allergies Anesthetics - Amide Type - Select A [ANESTHETICS - AMIDE TYPE] Allergy (Severe, Verified 02/13/23 14:49) Hyperthermia from general anesthesia Anesthetics - Ameena Type- Parabens [ANESTHETICS - AMEENA TYPE- PARABENS] Allergy (Severe, Verified 02/13/23 14:49) hyperthermia from general anesthesia General anesthesias Allergy (Severe, Verified 02/13/23 14:49) malignant hyperthermia-age 9 at T and A,[place] [place]ication List - Last Reconciled 02/02/23 by Frank Sorto MD aripiprazole (Abilify) 5 mg PO DAILY bisacodyl (Dulcolax (bisacodyl)) 10 mg (2 x 5 mg) PO BEDTIME buprenorphine-naloxone 8-2 mg 10 mg sublingual DAILY ergocalciferol (vitamin D2) 1,250 mcg PO QWEEK esketamine (Spravato) 0 mg intranasal levothyroxine 137 mcg PO DAILY 30 days nicotine 1 patch transdermal Q24H 14 days polyethylene glycol 3350 (Miralax) 238 grams PO ONCE simvastatin 10 mg PO BEDTIME 90 days vortioxetine 20 mg PO DAILY HPI- Psychiatric Chief Complaint: depression HPI Narrative: Patient seen in psychiatric follow-up. Patient is mood is blunted difficulty with motivation and enjoying things but significantly improved from her worst. She continues on Suboxone Abilify was added for augmentation to Trintellix 20 mg. She does get weekly spravato at [facility] Past Psychiatric History: There is a history of significant depressive symptoms past treatment with ECT past treatment with multiple SSRIs Cymbalta Abilify Patsy Canalesosushma. Patient does have a history of significant suicide attempt Mental Status Exam Mental Status Exam Narrative: Mental Status Exam Narrative: Appearance: Casually dressed appropriately groomed Behavior: Cooperative psychomotor: Normal activity Speech: Clear Thought proccess logical Thought content: future oriented with but somewhat demoralized Mood: Some anxiety and dysphoria Affect: Appropriate to mood much han affect SI:denies HI:denies VH/AH:none Delusions: None Insight/judgment: improved Memory/cog: Intact Telehealth Telehealth Location of provider rendering services: practice address Location of patient: address on file Patient Identification confirmed using: Name, : Yes Telehealth method: video Patient verbally consented to treatment: Yes Patient verbally consented to billing insurance company: Yes Patient informed of any privacy concerns related to visit: Yes Minutes spent on Phone/Video with Pt.: 23 Assessment and Plan Assessment & Plan (1) Major depression, recurrent, chronic: Status: Acute Code(s): F33.9 - Major depressive disorder, recurrent, unspecified (2) Social anxiety disorder: Status: Acute Code(s): F40.10 - Social phobia, unspecified (3) Body dysmorphic disorder: Status: Acute Code(s): F45.22 - Body dysmorphic disorder Plan We had discussed increase Suboxone potentially a for its off-label antidepressant effects and some people. Patient to talk to her provider question Suboxone spravato interaction unclear increase Abilify to 10 mg Medications: Changed From aripiprazole 5 mg PO DAILY 30 tabs 1RF To aripiprazole 10 mg PO BEDTIME 30 tabs 1RF Counseling and coordination of Care Pt. Self Management counseling: Behavior activation Medication management counseling: Effectiveness, Side effects and Dosing range Diagnosis and Prognosis Counseling: Adequacy of current interventions Details: I spent [20] minutes reviewing the record, seeing the patient and documenting in the medical record. Counseling provided to the patient/caregiver as outlined below. Addressed patient/caregiver concerns regarding current medication regime including effective adherence. Addressed patient/caregiver concerns regarding diagnosis and prognosis including accuracy of diagnosis, prognosis over time, impact of diagnosis. Addressed patient/caregiver concerns regarding impact of recent stressors. PFSH Medical History Tubulovillous adenoma Body dysmorphic disorder Social anxiety disorder Major depression, recurrent, chronic History of electroconvulsive therapy Malignant hyperthermia due to anesthesia Surgical History Hx of colonoscopy Hx of parotidectomy History of open reduction and internal fixation (ORIF) procedure Family History Father Stroke Mother Ovarian cancer Brother Asthma Sister Hyperthyroidism Social History Housing: House Are you a primary resident care aid to a significant other at home: No Do you presently have visiting nurse or other home services: No Alcohol intake: former Patient Tobacco Use Status: Former Tobacco user Quit Date: 11/15/22 e-Cigarette/Vaping Use: Never Used Second Hand Smoke Exposure: No Substance Use Type: Prescription Drugs service: No Current occupational status: unemployed Cognitive needs: No Hearing needs: No Vision needs: No Social History: The patient is living with her mother she is on disability 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
== END 2023-02-02 15:04 | disposition home or self-care (01) ==
LOC: HO.HOP 14:49
PROVIDERS: PCP Physician Assistant; Visit Provider Psychiatry & Neurology Psychiatry
DX: F33.1 Major depressive disorder, recurrent, moderate (principal); F40.10 Social phobia, unspecified; F45.22 Body dysmorphic disorder
CPT/HCPCS: 99214

== ENCOUNTER → 2023-02-02 14:49 | Outpatient (BNVA) | payer OTHER, SELFPAY | PROVIDERS: PCP Physician Assistant; Visit Provider Psychiatry & Neurology Psychiatry ==

== ENCOUNTER 2023-02-13 14:40 | Outpatient (AMB) | payer OTHER, SELFPAY ==
--- NOTE | 2023-02-13 14:47 | A.OFFVIS_ITS ---
Intake Vital Signs 02/13/23 14:49 Height 5 ft 8 in Weight 176 lb 5.917 oz BMI 26.8 BP 114/77 Blood Pressure Location Lt brachial Position Sitting Pulse 71 Intake Visit Reasons: S/p colon-[place] Intake Note: Barbara presents in the office as a follow up colonoscopy. CC: No concerns since her procedure. Certified Physical Therapist Assistant Required: No Allergies Anesthetics - Amide Type - Select A [ANESTHETICS - AMIDE TYPE] Allergy (Severe, Verified 02/13/23 14:49) Hyperthermia from general anesthesia Anesthetics - Ameena Type- Parabens [ANESTHETICS - AMEENA TYPE- PARABENS] Allergy (Severe, Verified 02/13/23 14:49) hyperthermia from general anesthesia General anesthesias Allergy (Severe, Verified 02/13/23 14:49) malignant hyperthermia-age 9 at T and A,no T and A done,[facility] S/p colon-[place] HPI Details LAST VISIT Colon cancer screening As mentioned above in HPI patient had no issues with anesthesia in the past. Tubulovillous adenoma found and patient is due for colorectal screening. Will send patient to schedule appointment. Patient denies any melena, hematochezia, unintentional weight loss or ribbon like stools. Denies any dyspepsia, dysphagia or odynophagia. Discussed with patient the importance of good bowel prep. Will send patient script for Dulcolax and she can take it in the evening starting week before the procedure and the day before the procedure she can take it at noon time. Will do split MiraLax prep with 17:00 and 22:00 times. The importance of clear liquid diet day before the procedure discussed with patient. Tubulovillous adenoma Tubulovillous adenoma found on colonoscopy. Patient denies melena, hematochezia, unintentional weight loss or ribbon like stools. Patient will be sent for colonoscopy and I will see her after the procedure. Patient is agreeable to this plan and verbalizes understanding of instructions. She was given the opportunity to ask questions all questions answered. COLONOSCOPY Findings: Terminal Ileum-normal Cecum:normal Ascending Colon: normal Transverse Colon -normal Descending Colon:normal Sigmoid Colon: normal Rectum: Retroflexion with small internal hemorrhoids, grade I with skin tag Anorectum - normal Colon preparation: Weston Bowel Preparation Scale Right colon; 2 Transverse colon: 2 Left colon; 2 (0 = Unprepared colon segment with mucos a not seen due to solid stool that cannot be cleared. 1 = Portion of mucosa of the colon segme nt seen, but other areas of the colon segment not well seen due to staining, residual stool and/or opaque liquid. 2 = Minor amount of residual staining, s mall fragments of stool and/or opaque liquid, but mucosa of colon segment seen well. 3 = Entire mucosa of colon segment seen well with no residual staining, small fragments of stool or opaque liquid) Impression and Post Procedure Diagnosis: internal hemorrhoids Plan: High fiber diet leaflet Avoid straining at stool, epsom salts and sitz bath, anusol supps or cream Repeat Colonoscopy in 5 years due to prior hx of tubulovillous adenoma or earlier if clinically indicated TODAY'S VISIT Patient is here today for follow-up and to discuss colonoscopy results. Patient denies any ill effects from the prep, anesthesia or procedure itself. Patient had no polyps, however due to history of tubulovillous adenoma she will return for colorectal screening in 5 years. Patient is moving her bowels without any issues. Occasional constipation, patient is on Suboxone and is taking Colace every evening. Patient denies melena, hematochezia, unintentional weight loss or ribbon like stools. Patient denies any GI concerning symptoms. States that she is feeling well. [facility] Medical History Tubulovillous adenoma Body dysmorphic disorder Social anxiety disorder Major depression, recurrent, chronic History of electroconvulsive therapy Malignant hyperthermia due to anesthesia Surgical History Hx of colonoscopy Hx of parotidectomy History of open reduction and internal fixation (ORIF) procedure Family History Father Stroke Mother Ovarian cancer Brother Asthma Sister Hyperthyroidism Social History Housing: House Are you a primary rn wound care to a significant other at home: No Do you presently have visiting nurse or other home services: No Alcohol intake: former Patient Tobacco Use Status: Former Tobacco user Quit Date: 11/15/22 e-Cigarette/Vaping Use: Never Used Second Hand Smoke Exposure: No Substance Use Type: Prescription Drugs service: No Current occupational status: unemployed Cognitive needs: No Hearing needs: No Vision needs: No Review of Systems Const Denies weight gain and Denies weight loss ENT Reports no additional complaints, Denies dysphagia and Denies odynophagia Card Reports no additional complaints Resp Reports no additional complaints GI Denies abdominal pain, Denies belching, Denies melena, Denies bloating, Denies change in bowel habits, Denies dysphagia, Denies excessive flatus, Denies dyspepsia, Denies heartburn, Denies diarrhea, Denies loose stools, Denies nausea, Denies odynophagia and Denies vomiting Musc Reports no additional complaints Neuro Reports no additional complaints Psych Reports no additional complaints Endo Reports no additional complaints Physical Exam Vital Signs: Last Vital Signs Pulse 71 02/13/23 14:49 BP 114/77 02/13/23 14:49 BMI result Body Mass Index 26.8 Const General: healthy appearing, no acute distress and well developed Nutritional Appearance: well nourished Orientation/consciousness: patient oriented x3 HEENT Head: Yes normal to inspection, Yes normocephalic and Yes atraumatic Face and sinus: Yes normal facial exam Mouth: Normal oral and palatal mucosa present Throat: Yes posterior oropharynx normal, Yes tonsils normal and Yes uvula midline Eyes General: appearance normal, both eyes and all related structures Neck Neck: Yes normal visual inspection, Yes full ROM and Yes trachea midline Thyroid: Thyroid normal Resp Effort & Inspection: normal respiratory effort, able to speak in complete sentences, no tracheal deviation and symmetric chest movement Auscultation: clear to auscultation bilaterally Cardio Rate: regular rate Heart sounds: S1 normal heart sound present and S2 normal heart sound present GI Inspection: Yes normal to inspection and No distended Palpation (GI): Soft to palpation, not firm, nontender and No hepatosplenomegaly present Auscultation: normal bowel sounds General: Yes no CVA tenderness Back/Spine/Pelvis Back: no CVA tenderness Skin General skin exam: elasticity normal, turgor normal and dry skin Neuro General: patient oriented x3 Psych Appearance: grossly normal Mental Status: mental status grossly normal Assessment & Plan Assessment & Plan (1) Status post colonoscopy: Code(s): Z98.890 - Other specified postprocedural states Plan: Normal colonoscopy. Patient denies any ill effects from the prep, anesthesia or procedure itself. Colorectal screening in 5 years, sooner if clinically necessary. Patient will follow-up with us on as-needed basis. She is agreeable to this plan and verbalizes understanding of instructions. She was given the opportunity to ask questions and all questions answered. Thank you for allowing me to participate in her care Coding Level of Care Code Est Pt Level 3 (43548) Diagnoses Status post colonoscopy Z98.890 Time Spent (min) 25 Comment 15 minutes spent with patient and additional 10 minutes spent reviewing her records
[2023-02-13 14:49] VITALS: BP 114/77; PULSE 71; BMI 26.8
== END 2023-02-13 15:08 | disposition home or self-care (01) ==
PROVIDERS: PCP Physician Assistant; Visit Provider Nurse Practitioner Family
DX: Z98.890 Other specified postprocedural states (principal)
CPT/HCPCS: 99213

== ENCOUNTER → 2023-02-13 14:40 | Outpatient (BNVA) | payer OTHER, SELFPAY | PROVIDERS: PCP Physician Assistant; Visit Provider Nurse Practitioner Family | DX: Z98.890 Other specified postprocedural states (principal) | CPT/HCPCS: 99212 ==

== ENCOUNTER 2023-03-14 14:49 | Outpatient (AMB) | payer OTHER, SELFPAY ==
[2023-03-14 14:52] VITALS: BP 104/70; PULSE 72; O2SAT 98; BMI 27.4
--- NOTE | 2023-03-14 14:52 | A.OFFPC_ITS ---
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: No Accompanied by: Self / Same As Patient Allergies Anesthetics - Amide Type - Select A [ANESTHETICS - AMIDE TYPE] Allergy (Severe, Verified 03/14/23 15:04) Hyperthermia from general anesthesia Anesthetics - Ameena Type- Parabens [ANESTHETICS - AMEENA TYPE- PARABENS] Allergy (Severe, Verified 03/14/23 15:04) hyperthermia from general anesthesia General anesthesias Allergy (Severe, Verified 03/14/23 15:04) malignant hyperthermia-age 9 at T [facility] A,no T [facility] A done,[facility] Medication List - Last Reconciled 03/14/23 by Александр Chao PA-C aripiprazole 10 mg PO BEDTIME buprenorphine-naloxone 8-2 mg 10 mg sublingual DAILY docusate sodium (Colace) 100 mg PO DAILY ergocalciferol (vitamin D2) 1,250 mcg PO QWEEK esketamine (Spravato) 0 mg intranasal levothyroxine 137 mcg PO DAILY 30 days simvastatin 10 mg PO BEDTIME 90 days vortioxetine 20 mg PO DAILY Tobacco use date assessed: 09/13/22 Dental Screening Dental Screen Date: 03/14/23 Did you have a dental visit in the last 12 months?: Yes Did you have a dental problem in the last 6 months where you did not have access to dental care?: No Was dental information given to patient?: Patient has dentist HPI 6 MONTH F/U HPI Details Patient is a 52-year-old female here today for a follow-up visit Patient has a past medical history significant for major depressive disorder, social anxiety, history of opiate use disorder, tobacco dependency, hypothyroidism, hyperlipidemia. Concern--> Currently undergoing dental work and has been started on supplemental vitamins including vitamin-D. She would like to recheck her vitamin-D CHRONIC MEDICAL CONDITIONS--> Major depressive disorder: Continues to follow psychiatry. Now doing ketamin treatment for her Depression and she feels it is very helpful for her mood. Also has opiate dependency thus continues on Suboxone at a bit of a higher dose now. .. Former Tobacco dependency: Quit as of using nicotine patches.. CONGRATULATED HER ON THIS! .. Hyperlipidemia: Most recent lipid panel showing much improved total cholesterol and LDL, continues on statin therapy without side effect. .. Hypothyroidism: Continues on daily use of levothyroxine 125 mcg, most recent TSH slightly elevated at 5.. Patient has been able to reduce her weight since last office visit. Laboratory Tests 08/31/21 08/31/21 08/31/21 12:55 12:55 12:55 Cholesterol 280 D LDL Cholesterol, C alc 193 TSH 8.41 H 03/25/22 03/25/22 03/25/22 10:30 10:30 10:30 Cholesterol 168 D LDL Cholesterol, C alc 103 TSH 1.80 PFSH Medical History Tubulovillous adenoma Body dysmorphic disorder Social anxiety disorder Major depression, recurrent, chronic History of electroconvulsive therapy Malignant hyperthermia due to anesthesia Surgical History Hx of colonoscopy Hx of parotidectomy History of open reduction and internal fixation (ORIF) procedure Family History Father Stroke Mother Ovarian cancer Brother Asthma Sister Hyperthyroidism Social History Housing: House Are you a primary farm or ranch animal caretaker to a significant other at home: No Do you presently have visiting nurse or other home services: No Alcohol intake: former Patient Tobacco Use Status: Former Tobacco user Quit Date: 11/15/22 e-Cigarette/Vaping Use: Never Used Second Hand Smoke Exposure: No Substance Use Type: Prescription Drugs service: No Current occupational status: unemployed Cognitive needs: No Hearing needs: No Vision needs: No Questionnaire Thrive Questionnaire Date Thrive assessed: 09/19/21 JESUS-7 AMB Questionnaire JESUS-7 Date JESUS - 7 assessed: 09/13/22 Source: Developed by Drs. Nicola Alvarado, Natalie Downs, Javi Cardenas and colleagues, with an educational claude from [employer]. Review of Systems Const Denies headache(s) Eyes Denies loss of vision ENT Denies vertigo, Denies dizziness, Denies headache(s) and Denies sore throat Card Denies chest pain, Denies leg edema and Denies lightheadedness Resp Denies cough, Denies hemoptysis and Denies wheezing GI Denies abdominal pain, Denies melena, Denies constipation, Denies diarrhea and Denies vomiting Denies urinary frequency, Denies dysuria and Denies urinary urgency Musc Denies arthralgias, Denies joint swelling, Denies numbness and Denies tingling Neuro Denies Abnormal speech present, Denies behavioral changes, Denies vertigo, Denies dizziness, Denies headache(s), Denies loss of vision, Denies memory loss, Denies numbness and Denies tingling Psych Denies anxiety, Denies behavioral changes, Denies depression, Denies memory loss and Denies panic attacks Bahman/Lymph Denies easy bleeding and Denies easy bruising Aller/Immun Denies wheezing Physical exam (Primary Care) Vital Signs: Last Vital Signs Pulse 72 03/14/23 14:52 BP 104/70 03/14/23 14:52 Pulse Ox 98 03/14/23 14:52 Oxygen Delivery Method Room Air 03/14/23 14:52 BMI result Body Mass Index 27.4 Tobacco/Smoking Status: Tobacco use Status Tobacco use date assessed 09/13/22 03/14/23 14:52 Patient Tobacco Use Status Former Tobacco user 03/14/23 14:52 e-Cigarette/Vaping Use Never Used 03/14/23 14:52 Thrive Assessment: Date of Thrive Assessment Date Thrive assessed 09/19/21 03/14/23 14:52 Const General: healthy appearing, no acute distress, alert and awake Nutritional Appearance: well nourished Orientation/consciousness: oriented to person, oriented to place and oriented to time HENMT Ears: TM's normal bilaterally General nose exam: Normal nasal mucous membranes and turbinates present Eyes Conjunctivae: conjunctivae normal Sclerae: sclerae normal Pupils: Equal, round and reactive pupils present Neck Neck: Yes no lymphadenopathy and Yes no JVD Thyroid: Thyroid normal Carotids: no bruits Resp Effort & Inspection: normal respiratory effort and not tachypneic Auscultation: no crackles, no rales, no rhonchi and no wheezes Cardio Rate: regular rate Rhythm: regular rhythm Heart sounds: no murmurs and normal S1 and S2 GI Palpation (GI): Soft to palpation, nontender, no hepatomegaly and no splenomegaly Auscultation: normal bowel sounds Skin General skin exam: no rashes or lesions noted and dry skin Neuro General: oriented to person, oriented to place and oriented to time Cranial nerves: Yes Equal, round and reactive pupils present Speech: No Abnormal speech present Gait exam (Neuro): Normal gait present Motor exam (neuro): no tremor noted Extrem Right upper extremity: full ROM Left upper extremity: full ROM Right lower extremity: full ROM; no edema Left lower extremity: full ROM; no edema Psych Mental Status: mental status grossly normal Speech and movement: Normal speech and movement present Affect: normal affect Attitude: cooperative Thought process: Normal thought process present Office Procedures Flu Questionnaire Does the patient have a severe egg allergy?: No Does the patient have severe life threatening allergies?: No Does the patient have a fever or illness today?: No Has the patient ever had Guillain-[place] Syndrome?: No Has the patient ever had any past reaction to a flu shot?: No Immunizations flu vacc [id number] 6mos up(PF) 60 mcg(15 mcgx4)/0.5 mL IM syringe Performing Provider: Александр Chao PA-C Performing Location: [facility] Administered by: ENRRIQUE Buck on 03/14/23 15:00 Dose Route Admin Location Dispensed Lot Number Expiration Date NDC Sdv Pilot/Navigator/Dds Operator 0.5 mL IM Left Deltoid 0.5 mL [id number] 11/25/23 68679-338-81 [employer] VIS Given Date VIS Provided VIS Publication Date 03/14/23 Single Vaccine 20 Eligibility Eligibility Date Funding Source Not [facility] Eligible 03/14/23 Private Assessment and Plan Assessment & Plan (1) Moderate depressive disorder: Code(s): F32.1 - Major depressive disorder, single episode, moderate Plan: Continues to follow a therapist and a psychiatrist. Continues on ketamine nasal spray maintenance therapy. She reports she feels it is working feels much better with her depression. (2) Tobacco dependence: Code(s): F17.200 - Nicotine dependence, unspecified, uncomplicated Plan: Has resolved. Has quit smoking over the last 2 months (3) Hypothyroidism: Code(s): E03.9 - Hypothyroidism, unspecified Qualifiers: Hypothyroidism type: unspecified Qualified Code(s): E03.9 - Hypothyroidism, unspecified Plan: Most recent TSH slightly elevated at 5. Noted some weight gain since last office visit to which she attributes to her psychiatric medication.. Patient seems chemically and clinically euthyroid. Will continue to follow TSH to assure no (4) HLD (hyperlipidemia): Code(s): E78.5 - Hyperlipidemia, unspecified Qualifiers: Hyperlipidemia type: mixed hyperlipidemia Qualified Code(s): E78.2 - Mixed hyperlipidemia Plan: Patient's most recent lipid panel showing acceptable total cholesterol and LDL. Continues on low-dose simvastatin with good effect. Goal LDL to be below 160 (5) Opiate dependence: Code(s): F11.20 - Opioid dependence, uncomplicated Qualifiers: Substance use status: in remission Qualified Code(s): F11.21 - Opioid dependence, in remission Plan: Continues on Suboxone through her psychiatrist, has been in remission from any illicit opiates for quite a while now. (6) Vitamin D deficiency: Code(s): E55.9 - Vitamin D deficiency, unspecified Plan: Will check vitamin-D. Continues on high-dose weekly vitamin-D supplement and daily multivitamins. Orders: Orders Influenza [id number] Immunization 03/14/23 Z23 - Encounter for immunization Vitamin D 25-OH Total 03/14/23 E55.9 - Vitamin D deficiency, unspecified TSH reflex Free T4 03/14/23 E03.9 - Hypothyroidism, unspecified Lipid Panel 03/14/23 E78.2 - Mixed hyperlipidemia Comprehensive [place]. Panel Fast 03/14/23 E78.2 - Mixed hyperlipidemia Coding Level of Care Code Est Pt Level 4 (58972) Diagnoses Moderate depressive disorder F32.1 Tobacco dependence F17.200 Hypothyroidism, unspecified type E03.9 Hypothyroidism type: unspecified Mixed hyperlipidemia E78.2 Hyperlipidemia type: mixed hyperlipidemia Opioid dependence in remission F11.21 Substance use status: in remission Vitamin D deficiency E55.9
== END 2023-03-14 15:16 | disposition home or self-care (01) ==
PROVIDERS: Visit Provider Physician Assistant
DX: Z23 Encounter for immunization (principal)
CPT/HCPCS: 90471; 90686; 99214

== ENCOUNTER 2023-03-22 17:06 | Outpatient (AMB) | payer OTHER, SELFPAY ==
--- NOTE | 2023-03-22 17:31 | MHC.OFFVISPS ---
Intake Intake Visit Reasons: depression Allergies Anesthetics - Amide Type - Select A [ANESTHETICS - AMIDE TYPE] Allergy (Severe, Verified 03/14/23 15:04) Hyperthermia from general anesthesia Anesthetics - Ameena Type- Parabens [ANESTHETICS - AMEENA TYPE- PARABENS] Allergy (Severe, Verified 03/14/23 15:04) hyperthermia from general anesthesia General anesthesias Allergy (Severe, Verified 03/14/23 15:04) malignant hyperthermia-age 9 at [facility] A[place] [place] List - Last Reconciled 03/22/23 by Frank Sorto MD buprenorphine-naloxone 8-2 mg 10 mg sublingual DAILY docusate sodium (Colace) 100 mg PO DAILY ergocalciferol (vitamin D2) 1,250 mcg PO QWEEK esketamine (Spravato) 0 mg intranasal levothyroxine 137 mcg PO DAILY 30 days simvastatin 10 mg PO BEDTIME 90 days vortioxetine 20 mg PO DAILY HPI- Psychiatric Chief Complaint: depression HPI Narrative: Patient is seen in psychiatric follow-up. The patient's mood is flat depressed no SI she did increase Suboxone she has been feeling that she has not been getting the same stability from spravato that she had previously the patient did discontinue Abilify felt that had not been helpful and she had had significant weight gain which was quite problematic for her more flat less of ability to enjoy things denies any active self-harm Past Psychiatric History: There is a history of significant depressive symptoms past treatment with ECT past treatment with multiple SSRIs Cymbalta Abilify Rexulti Seroquel. Patient does have a history of significant suicide attempt Mental Status Exam Mental Status Exam Narrative: Mental Status Exam Narrative: Appearance: Casually dressed appropriately groomed Behavior: Cooperative psychomotor: Normal activity Speech: Clear Thought proccess logical Thought content: future oriented more restricted Mood: anxiety and dysphoria Affect: Flat SI:denies HI:denies VH/AH:none Delusions: None Insight/judgment: Somewhat impaired just discontinuing medication at times lithium Abilify Memory/cog: Intact Assessment and Plan Assessment & Plan (1) Major depression, recurrent, chronic: Status: Acute Code(s): F33.9 - Major depressive disorder, recurrent, unspecified (2) Opiate dependence: Status: Acute Qualifiers: Substance use status: in remission Qualified Code(s): F11.21 - Opioid dependence, in remission Code(s): F11.20 - Opioid dependence, uncomplicated (3) Body dysmorphic disorder: Status: Acute Code(s): F45.22 - Body dysmorphic disorder (4) Social anxiety disorder: Status: Acute Code(s): F40.10 - Social phobia, unspecified Plan There is a question of whether not Suboxone might be interfering with fact of miss of spravato Medications: Changed From ergocalciferol (vitamin D2) 1,250 mcg PO QWEEK 30 caps 1RF To ergocalciferol (vitamin D2) 1,250 mcg PO QWEEK 13 caps 1RF 3 months Refilled vortioxetine 20 mg PO DAILY 30 tabs 2RF Discontinued aripiprazole Discontinued Reason: Doctor's Order 10 mg PO BEDTIME 30 tabs 1RF Counseling and coordination of Care Medication management counseling: Effectiveness and Side effects Diagnosis and Prognosis Counseling: Problematic behaviors secondary to diagnosis and Adequacy of current interventions Details: I spent [15] minutes reviewing the record, seeing the patient and documenting in the medical record. Counseling provided to the patient/caregiver as outlined below. Addressed patient/caregiver concerns regarding current medication regime including effective adherence. Addressed patient/caregiver concerns regarding diagnosis and prognosis including accuracy of diagnosis, prognosis over time, impact of diagnosis. Addressed patient/caregiver concerns regarding impact of recent stressors. PFSH Medical History Tubulovillous adenoma Body dysmorphic disorder Social anxiety disorder Major depression, recurrent, chronic History of electroconvulsive therapy Malignant hyperthermia due to anesthesia Surgical History Hx of colonoscopy Hx of parotidectomy History of open reduction and internal fixation (ORIF) procedure Family History Father Stroke Mother Ovarian cancer Brother Asthma Sister Hyperthyroidism Social History Housing: House Are you a primary healthcare network consultant to a significant other at home: No Do you presently have visiting nurse or other home services: No Alcohol intake: former Patient Tobacco Use Status: Former Tobacco user Quit Date: 11/15/22 e-Cigarette/Vaping Use: Never Used Second Hand Smoke Exposure: No Substance Use Type: Prescription Drugs service: No Current occupational status: unemployed Cognitive needs: No Hearing needs: No Vision needs: No Social History: The patient is living with her mother she is on disability 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
== END 2023-03-22 17:45 | disposition home or self-care (01) ==
LOC: HO.HOP 17:06
PROVIDERS: PCP Physician Assistant; Visit Provider Psychiatry & Neurology Psychiatry
DX: F33.1 Major depressive disorder, recurrent, moderate (principal); F11.21 Opioid dependence, in remission; F45.22 Body dysmorphic disorder; F40.10 Social phobia, unspecified
CPT/HCPCS: 99213

== ENCOUNTER → 2023-03-22 17:06 | Outpatient (BNVA) | payer OTHER, SELFPAY | PROVIDERS: PCP Physician Assistant; Visit Provider Psychiatry & Neurology Psychiatry | DX: F33.9 Major depressive disorder, recurrent, unspecified (principal); F45.22 Body dysmorphic disorder; F40.10 Social phobia, unspecified; F11.21 Opioid dependence, in remission | CPT/HCPCS: 99212 ==

== ENCOUNTER 2023-05-11 12:57 | Outpatient (REF) | payer OTHER, SELFPAY ==
[2023-05-11 14:25] LABS: Alanine Aminotransferase 29 U/L (0-31); Albumin Level 4.8 g/dL (3.5-5.0); Alkaline Phosphatase 61 U/L (39-117); Anion Gap 15 (12-20); Aspartate Amino Transferase 25 U/L (5-31); Bilirubin Total 0.6 mg/dL (0.0-1.0); Blood Urea Nitrogen 12 mg/dL (9-16); Carbon Dioxide 25 mmol/L (22-29); Chloride 105 mmol/L (96-108); Cholesterol 181 mg/dL (<200); Estimated Glomerular Filt Rate > 60; Glucose Fasting 107 mg/dL (60-99); HDL Cholesterol 59 mg/dL (>40); LDL Cholesterol Calculated 103 mg/dL (<100); Potassium 4.6 mmol/L (3.3-5.1); Sodium 140 mmol/L (135-145); Total Protein 7.8 g/dL (6.5-8.0); Triglycerides 99 mg/dL (<150)
[2023-05-11 14:40] LABS: TSH reflex Free T4 1.23 uIU/mL (0.32-4.0); Vitamin D 25-OH Total 93.1 ng/mL (>30)
== END 2023-05-11 12:58 | disposition home or self-care (01) ==
LOC: HO.LAB 12:57
PROVIDERS: PCP Physician Assistant; Visit Provider Physician Assistant
DX: E78.2 Mixed hyperlipidemia (principal); E55.9 Vitamin D deficiency, unspecified; E03.9 Hypothyroidism, unspecified
CPT/HCPCS: 36415; 80053; 80061; 82306; 84443

== ENCOUNTER 2023-06-25 17:29 | Outpatient (AMB) | payer MEDICARE, MEDICAID, SELFPAY ==
--- NOTE | 2023-06-25 21:30 | MHC.OFFVISPS ---
Intake Intake Visit Reasons: depression Allergies Anesthetics - Amide Type - Select A [ANESTHETICS - AMIDE TYPE] Allergy (Severe, Verified 03/14/23 15:04) Hyperthermia from general anesthesia Anesthetics - Ameena Type- Parabens [ANESTHETICS - AMEENA TYPE- PARABENS] Allergy (Severe, Verified 03/14/23 15:04) hyperthermia from general anesthesia General anesthesias Allergy (Severe, Verified 03/14/23 15:04) malignant hyperthermia-age 9 at [facility],[place] [facility] [place] [place]PI- Psychiatric Chief Complaint: depression HPI Narrative: Patient seen psychiatric follow-up she continues to live with her mother and this is generally going well. She is somewhat isolated she is now on a lower dose of Suboxone because interaction between ketamine Suboxone that may make the S ketamine less effective patient flat somewhat a motivational no SI has not yet connected with therapist Past Psychiatric History: There is a history of significant depressive symptoms past treatment with ECT past treatment with multiple SSRIs Cymbalta Abilify Rexulti Seroquel. Patient does have a history of significant suicide attempt Mental Status Exam Mental Status Exam Narrative: Mental Status Exam Narrative: Appearance: Casually dressed appropriately groomed Behavior: Cooperative psychomotor: Normal activity Speech: Clear Thought proccess logical Thought content: future oriented more restricted Mood: anxiety and dysphoria Affect: Flat SI:denies HI:denies VH/AH:none Delusions: None Insight/judgment: Generally good Memory/cog: Intact Telehealth Telehealth Location of provider rendering services: practice address Location of patient: address on file Patient Identification confirmed using: Name, : Yes Telehealth method: video Patient verbally consented to treatment: Yes Patient verbally consented to billing insurance company: Yes Patient informed of any privacy concerns related to visit: Yes Minutes spent on Phone/Video with Pt.: 23 Assessment and Plan Assessment & Plan (1) Major depression, recurrent, chronic: Status: Acute Code(s): F33.9 - Major depressive disorder, recurrent, unspecified (2) Social anxiety disorder: Status: Acute Code(s): F40.10 - Social phobia, unspecified Plan Start Vraylar 1.5 mg for treatment resistant depression. Had gained weight on Abilify did better on the combination of Abilify and Trintellix Suboxone now 4 mg monitor response follow-up 4-8 weeks Medications: New cariprazine (Vraylar) 1.5 mg PO DAILY 30 caps 2RF Counseling and coordination of Care Details: I spent [] minutes reviewing the record, seeing the patient and documenting in the medical record. Counseling provided to the patient/caregiver as outlined below. Addressed patient/caregiver concerns regarding current medication regime including effective adherence. Addressed patient/caregiver concerns regarding diagnosis and prognosis including accuracy of diagnosis, prognosis over time, impact of diagnosis. Addressed patient/caregiver concerns regarding impact of recent stressors. PFSH Medical History Tubulovillous adenoma Body dysmorphic disorder Social anxiety disorder Major depression, recurrent, chronic History of electroconvulsive therapy Malignant hyperthermia due to anesthesia Surgical History Hx of colonoscopy Hx of parotidectomy History of open reduction and internal fixation (ORIF) procedure Family History Father Stroke Mother Ovarian cancer Brother Asthma Sister Hyperthyroidism Social History Housing: House Are you a primary healthcare administrative assistant to a significant other at home: No Do you presently have visiting nurse or other home services: No Alcohol intake: former Patient Tobacco Use Status: Former Tobacco user Quit Date: 11/15/22 e-Cigarette/Vaping Use: Never Used Second Hand Smoke Exposure: No Substance Use Type: Prescription Drugs service: No Current occupational status: unemployed Cognitive needs: No Hearing needs: No Vision needs: No Social History: The patient is living with her mother she is on 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
== END 2023-06-25 17:30 | disposition home or self-care (01) ==
LOC: HO.HOP 17:29
PROVIDERS: PCP Physician Assistant; Visit Provider Psychiatry & Neurology Psychiatry
DX: F33.1 Major depressive disorder, recurrent, moderate (principal); F40.10 Social phobia, unspecified
CPT/HCPCS: 99214

== ENCOUNTER → 2023-06-25 17:29 | Outpatient (BNVA) | payer OTHER, SELFPAY | PROVIDERS: PCP Physician Assistant; Visit Provider Psychiatry & Neurology Psychiatry ==

== ENCOUNTER 2023-07-26 15:38 | Outpatient (AMB) | payer MEDICARE, MEDICAID, SELFPAY ==
--- NOTE | 2023-07-26 15:52 | A.OFFPSYCH_ITS ---
Intake Intake Visit Reasons: depression Allergies Anesthetics - Amide Type - Select A [ANESTHETICS - AMIDE TYPE] Allergy (Severe, Verified 03/14/23 15:04) Hyperthermia from general anesthesia Anesthetics - Ameena Type- Parabens [ANESTHETICS - AMEENA TYPE- PARABENS] Allergy (Severe, Verified 03/14/23 15:04) hyperthermia from general anesthesia General anesthesias Allergy (Severe, Verified 03/14/23 15:04) malignant hyperthermia-age 9 at [facility],no [facility] done,[facility] [place] HPI- Psychiatric Chief Complaint: depression HPI Narrative: Pt seen in f/u mood has been better generally looking to perhaps do spravato 1 x week feels better on vraylar on 1.5 mg gets up early feels more invigorated energy for the day . 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 She is again looking to reach out to be an individual therapy Past Psychiatric History: There is a history of significant depressive symptoms past treatment with ECT past treatment with multiple SSRIs Thelma Curiel. Patient does have a history of significant suicide attempt Mental Status Exam Mental Status Exam Narrative: Mental Status Exam Narrative: Appearance: Casually dressed appropriately groomed/no abnormal movements noted no oral facial dyskinesia Behavior: Cooperative psychomotor: Normal activity Speech: Clear Thought proccess logical Thought content: future oriented self deprecating concerns regarding how she appears Mood: anxiety and dysphoria Affect: Flat SI:denies HI:denies VH/AH:none Delusions: None Insight/judgment: Generally good Memory/cog: Intact Assessment and Plan Assessment & Plan (1) Major depression, recurrent, chronic: Status: Acute Code(s): F33.9 - Major depressive disorder, recurrent, unspecified (2) Body dysmorphic disorder: Status: Acute Code(s): F45.22 - Body dysmorphic disorder (3) Social anxiety disorder: Status: Acute Code(s): F40.10 - Social phobia, unspecified Plan Patient doing better on Vraylar 1.5 mg aware of risks benefits alternatives. Suboxone has been decreased by Dr. Ayala in case it is interfering with effectiveness of spravato continue Trintellix Medications: Refilled vortioxetine 20 mg PO DAILY 90 tabs 1RF cariprazine (Vraylar) 1.5 mg PO DAILY 90 caps 1RF Counseling and coordination of Care Details: I spent [] minutes reviewing the record, seeing the patient and documenting in the medical record. Counseling provided to the patient/caregiver as outlined below. Addressed patient/caregiver concerns regarding current medication regime including effective adherence. Addressed patient/caregiver concerns regarding diagnosis and prognosis including accuracy of diagnosis, prognosis over time, impact of diagnosis. Addressed patient/caregiver concerns regarding impact of recent stressors. PFSH Medical History Tubulovillous adenoma Body dysmorphic disorder Social anxiety disorder Major depression, recurrent, chronic History of electroconvulsive therapy Malignant hyperthermia due to anesthesia Surgical History Hx of colonoscopy Hx of parotidectomy History of open reduction and internal fixation (ORIF) procedure Family History Father Stroke Mother Ovarian cancer Brother Asthma Sister Hyperthyroidism Social History Housing: House Are you a primary professional healthcare representative to a significant other at home: No Do you presently have visiting nurse or other home services: No Alcohol intake: former Patient Tobacco Use Status: Former Tobacco user Quit Date: 11/15/22 e-Cigarette/Vaping Use: Never Used Second Hand Smoke Exposure: No Substance Use Type: Prescription Drugs service: No Current occupational status: unemployed Cognitive needs: No Hearing needs: No Vision needs: No Social History: The patient is living with her mother 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
== END 2023-07-26 16:45 | disposition home or self-care (01) ==
LOC: HO.HOP 15:38
PROVIDERS: PCP Physician Assistant; Visit Provider Psychiatry & Neurology Psychiatry
DX: F33.9 Major depressive disorder, recurrent, unspecified (principal); F45.22 Body dysmorphic disorder; F40.10 Social phobia, unspecified
CPT/HCPCS: 90833; 99213

== ENCOUNTER → 2023-07-26 15:38 | Outpatient (BNVA) | payer MEDICARE, SELFPAY | PROVIDERS: PCP Physician Assistant; Visit Provider Psychiatry & Neurology Psychiatry | DX: F33.9 Major depressive disorder, recurrent, unspecified (principal); F45.22 Body dysmorphic disorder; F40.10 Social phobia, unspecified | CPT/HCPCS: 99212 ==

== ENCOUNTER 2023-09-13 13:57 | Outpatient (AMB) | payer OTHER, SELFPAY ==
[2023-09-13 14:03] VITALS: BP 104/60; PULSE 94; O2SAT 98; BMI 26.8
--- NOTE | 2023-09-13 14:03 | MHC.PC.OV ---
Vital Signs 09/13/23 14:03 Height 5 ft 8 in Weight 176 lb 4 oz BMI 26.8 BP 104/60 Blood Pressure Location Rt brachial Position Sitting Pulse 94 Pulse Source Pulse Oximeter Pulse Oximetry (%) 98 Oxygen Delivery Method Room Air Intake Visit Reasons: f/u hypothyroid Nozzle Operator Required: No Accompanied by: Self / Same As Patient Allergies Anesthetics - Amide Type - Select A [ANESTHETICS - AMIDE TYPE] Allergy (Severe, Verified 09/13/23 14:17) Hyperthermia from general anesthesia Anesthetics - Ameena Type- Parabens [ANESTHETICS - AMEENA TYPE- PARABENS] Allergy (Severe, Verified 09/13/23 14:17) hyperthermia from general anesthesia General anesthesias Allergy (Severe, Verified 09/13/23 14:17) malignant hyperthermia-age 9 at T and A,[place] [place] List - Last Reconciled 09/13/23 by Александр Chao PA-C buprenorphine-naloxone 8-2 mg 0.5 film sublingual DAILY cariprazine (Vraylar) 1.5 mg PO DAILY docusate sodium (Colace) 100 mg PO DAILY ergocalciferol (vitamin D2) 1,250 mcg PO QWEEK 3 months esketamine (Spravato) 0 mg intranasal levothyroxine 137 mcg PO DAILY 30 days simvastatin 10 mg PO BEDTIME 90 days vortioxetine 20 mg PO DAILY Tobacco use date assessed: 09/13/23 Dental Screening Dental Screen Date: 09/13/23 Did you have a dental visit in the last 12 months?: No Did you have a dental problem in the last 6 months where you did not have access to dental care?: No Was dental information given to patient?: Patient has dentist HPI f/u hypothyroid HPI Details Patient is a 53-year-old female here today for a follow-up visit Patient has a past medical history significant for major depressive disorder, social anxiety, history of opiate use disorder, tobacco dependency, hypothyroidism, hyperlipidemia. Concern--> reports having issues with excessive sweatiness on minimal exertion. She reports this has been a problem for her for many years. She denies any chest pain shortness for breath during her episodes of diaphoresis. She is assuming this is from Suboxone as a side effect. She is interested in starting a medication for this. She also reports she has been told she has slightly elevated LFTs and wonders if this is due to statin therapy. Will recheck labs including lipid panel and if LFTs elevated will consider discontinuing statin. CHRONIC MEDICAL CONDITIONS--> Major depressive disorder: Continues to follow psychiatry. Now doing ketamin treatment for her Depression and she feels it is very helpful for her mood. Also has opiate dependency thus continues on Suboxone at a bit of a higher dose now. .. Former Tobacco dependency: Quit as of using nicotine patches.. CONGRATULATED HER ON THIS! .. Hyperlipidemia: Most recent lipid panel showing much improved total cholesterol and LDL, continues on statin therapy without side effect. .. Hypothyroidism: Continues on daily use of levothyroxine 125 mcg, most recent TSH was acceptable. Will continue to follow TSH to assure normal. [facility] Medical History (Updated 09/17/23 @ 07:31 by Александр Chao PA-C) Tobacco dependence Tubulovillous adenoma Body dysmorphic disorder Social anxiety disorder Major depression, recurrent, chronic History of electroconvulsive therapy Malignant hyperthermia due to anesthesia Surgical History Hx of colonoscopy Hx of parotidectomy History of open reduction and internal fixation (ORIF) procedure Family History Father Stroke Mother Ovarian cancer Brother Asthma Sister Hyperthyroidism Social History Housing: House Are you a primary cardiac care nurse to a significant other at home: No Do you presently have visiting nurse or other home services: No Alcohol intake: former Patient Tobacco Use Status: Former Tobacco user Quit Date: 11/15/22 e-Cigarette/Vaping Use: Never Used Second Hand Smoke Exposure: No Substance Use Type: Prescription Drugs service: No Current occupational status: unemployed Cognitive needs: No Hearing needs: No Vision needs: No Questionnaire PHQ-9 Over the last 2 weeks, how often have you been bothered by any of the following problems? 1. Little interest or pleasure in doing things: not at all 2. Feeling down, depressed, or hopeless: not at all (in treatment) 3. Trouble falling or staying asleep, or sleeping too much: not at all 4. Feeling tired or having little energy: not at all 5. Poor appetite or overeating: not at all 6. Feeling bad about yourself - or that you are a failure or have let yourself or your family down: not at all 7. Trouble concentrating on things, such as reading the newspaper or watching television: not at all 8. Moving or speaking so slowly that other people could have noticed. Or the opposite - being so fidgety or restless that you have been moving around a lot more than usual: not at all 9. Thoughts that you would be better off or of hurting yourself in some way: not at all Total score: 0 Depression Screening Interpretation: Positive Depression Screening Done: Yes 19913 - PHQ-9 Billing: Yes Source: Developed by Drs. Nicola Alvarado, Natalie Downs, Javi Cardenas and colleagues, with an educational claude from [employer]. Thrive Questionnaire Date Thrive assessed: 09/13/23 I am a: Patient What is your living situation today?: I have a steady place to live Within the past 12 months, did the food you bought not last and you didn't have the money to get more?: Never true Within the past 12 months, did you worry whether your food would run out before you got money to buy more?: Never true Do you have trouble paying for medicines?: No Do you have trouble getting transportation to medical appointments?: No Do you have trouble paying your heating and electricity bill?: No Do you have trouble taking care of your child, family member or friend?: No Do you have trouble with day-to-day activities such as bathing, preparing meals, shopping, managing finances, etc.?: No Are you currently unemployed and looking for a job?: No Are you interested in more education?: No Please select the resources that you would like help with: None Currently or been in a relationship where the following occur: no concerns reported THRIVE Score: 0 AUDIT C Alcohol Use Questionnaire (AUDIT-C) 1. How often do you have a drink containing alcohol?: Never 2. How many drinks containing alcohol do you have on a typical day when you are drinking?: 1 or 2 (0) 3. How often do you have six or more drinks on one occasion?: Never Total Score: 0 JESUS-7 AMB Questionnaire JESUS-7 Date JESUS - 7 assessed: 09/13/23 Feeling nervous, anxious, or on edge: 0 = Not at all Not being able to stop or control worryin = Not at all Worrying too much about different things: 0 = Not at all Trouble relaxin = Not at all Being so restless that it is hard to sit still: 0 = Not at all Becoming easily annoyed or irritable: 0 = Not at all Feeling afraid as if something awful might happen: 0 = Not at all Total JESUS-7 score (0-4 normal; 5-9 mild; 10-14 moderate; 15-21 severe): 0 Source: Developed by Drs. Nicola Alvarado, Natalie Downs, Javi Cardenas and colleagues, with an educational claude from [employer]. JESUS-7 Assessment Billing JESUS-7 Assessment Tool: JESUS-7 Assessment 39112 Review of Systems Const Denies headache(s) Eyes Denies loss of vision ENT Denies vertigo, Denies dizziness, Denies headache(s) and Denies sore throat Card Denies chest pain, Denies leg edema and Denies lightheadedness Resp Denies cough, Denies hemoptysis and Denies wheezing GI Denies abdominal pain, Denies melena, Denies constipation, Denies diarrhea and Denies vomiting Denies urinary frequency, Denies dysuria and Denies urinary urgency Musc Denies arthralgias, Denies joint swelling, Denies numbness and Denies tingling Neuro Denies Abnormal speech present, Denies behavioral changes, Denies vertigo, Denies dizziness, Denies headache(s), Denies loss of vision, Denies memory loss, Denies numbness and Denies tingling Psych Denies anxiety, Denies behavioral changes, Denies depression, Denies memory loss and Denies panic attacks Bahman/Lymph Denies easy bleeding and Denies easy bruising Aller/Immun Denies wheezing Physical exam (Primary Care) Vital Signs: Last Vital Signs Pulse 94 09/13/23 14:03 BP 104/60 09/13/23 14:03 Pulse Ox 98 09/13/23 14:03 Oxygen Delivery Method Room Air 09/13/23 14:03 BMI result Body Mass Index 26.8 Tobacco/Smoking Status: Tobacco use Status Tobacco use date assessed 09/13/23 09/13/23 14:09 Patient Tobacco Use Status Former Tobacco user 04/18/24 14:09 e-Cigarette/Vaping Use Never Used 09/13/23 14:09 PHQ-9: PHQ-9 Score PHQ-9: Total score 0 09/13/23 14:18 Depression Screening Interpretation: Positive Thrive Assessment: Date of Thrive Assessment Date Thrive assessed 09/13/23 09/13/23 14:09 Currently or been in a relationship where the following occur: no concerns reported Const General: healthy appearing, no acute distress, alert and awake Nutritional Appearance: well nourished Orientation/consciousness: oriented to person, oriented to place and oriented to time HENMT Ears: TM's normal bilaterally General nose exam: Normal nasal mucous membranes and turbinates present Eyes Conjunctivae: conjunctivae normal Sclerae: sclerae normal Pupils: Equal, round and reactive pupils present Neck Neck: Yes no lymphadenopathy and Yes no JVD Thyroid: Thyroid normal Carotids: no bruits Resp Effort & Inspection: normal respiratory effort and not tachypneic Auscultation: no crackles, no rales, no rhonchi and no wheezes Cardio Rate: regular rate Rhythm: regular rhythm Heart sounds: no murmurs and normal S1 and S2 GI Palpation (GI): Soft to palpation, nontender, no hepatomegaly and no splenomegaly Auscultation: normal bowel sounds Skin General skin exam: no rashes or lesions noted and dry skin Neuro General: oriented to person, oriented to place and oriented to time Cranial nerves: Yes Equal, round and reactive pupils present Speech: No Abnormal speech present Gait exam (Neuro): Normal gait present Motor exam (neuro): no tremor noted Extrem Right upper extremity: full ROM Left upper extremity: full ROM Right lower extremity: full ROM; no edema Left lower extremity: full ROM; no edema Psych Mental Status: mental status grossly normal Speech and movement: Normal speech and movement present Affect: normal affect Attitude: cooperative Thought process: Normal thought process present Assessment and Plan Assessment & Plan (1) Hypothyroidism: Code(s): E03.9 - Hypothyroidism, unspecified Qualifiers: Hypothyroidism type: unspecified Qualified Code(s): E03.9 - Hypothyroidism, unspecified Plan: Most recent TSH acceptable. Will continue her current dose of levothyroxine. Patient seems chemically and clinically euthyroid. Will continue to follow TSH to assure no (2) Moderate depressive disorder: Code(s): F32.1 - Major depressive disorder, single episode, moderate Plan: Continues to follow a therapist and a psychiatrist. Continues on ketamine nasal spray maintenance therapy. She reports she feels it is working feels much better with her depression. (3) HLD (hyperlipidemia): Code(s): E78.5 - Hyperlipidemia, unspecified Qualifiers: Hyperlipidemia type: mixed hyperlipidemia Qualified Code(s): E78.2 - Mixed hyperlipidemia Plan: Patient's most recent lipid panel showing acceptable total cholesterol and LDL. Continues on low-dose simvastatin with good effect. Goal LDL to be below 160. Does note to have slightly elevated LFTs. Will recheck and if elevated will consider reducing dose of statin or completely discontinuing (4) Opiate dependence: Code(s): F11.20 - Opioid dependence, uncomplicated Qualifiers: Substance use status: in remission Qualified Code(s): F11.21 - Opioid dependence, in remission Plan: Continues on Suboxone through her psychiatrist, has been in remission from any illicit opiates for quite a while now. She does report her LFTs have been slightly elevated lately. Wondering if this is due to statin medication. (5) Vitamin D deficiency: Code(s): E55.9 - Vitamin D deficiency, unspecified Plan: Will check vitamin-D. Continues on high-dose weekly vitamin-D supplement and daily multivitamins. (6) Generalized hyperhidrosis: Code(s): R61 - Generalized hyperhidrosis Plan: Does report hyperhidrosis for quite a while now. She is interested in medication to help. The hyperhidrosis is a potential side effect of Suboxone and she does understand this. Orders: Orders TSH reflex Free T4 09/13/23 E03.9 - Hypothyroidism, unspecified Lipid Panel 09/13/23 E78.2 - Mixed hyperlipidemia Comprehensive [place]. Panel Fast 09/13/23 E78.2 - Mixed hyperlipidemia Vitamin D 25-OH Total 09/13/23 E55.9 - Vitamin D deficiency, unspecified Medications: New glycopyrrolate 1 mg PO TID 90 tabs 1RF 30 days R61 - Generalized hyperhidrosis Patient Instructions: Goals: Continue to abstain from cigarette smoking and control mental health conditions. Barriers: Mental health disease Coding Level of Care Code Est Pt Level 4 (72511) Diagnoses Hypothyroidism, unspecified type E03.9 Hypothyroidism type: unspecified Moderate depressive disorder F32.1 Mixed hyperlipidemia E78.2 Hyperlipidemia type: mixed hyperlipidemia Opioid dependence in remission F11.21 Substance use status: in remission Vitamin D deficiency E55.9 Generalized hyperhidrosis R61 Additional Codes JESUS-7 Assessment Billing - JESUS-7 Assessment Tool: JESUS-7 Assessment 08550 ([id number])
== END 2023-09-13 14:33 | disposition home or self-care (01) ==
PROVIDERS: PCP Physician Assistant; Visit Provider Physician Assistant
DX: E03.9 Hypothyroidism, unspecified (principal); F32.1 Major depressive disorder, single episode, moderate; E78.2 Mixed hyperlipidemia; F11.21 Opioid dependence, in remission; E55.9 Vitamin D deficiency, unspecified; R61 Generalized hyperhidrosis
CPT/HCPCS: 99214

== ENCOUNTER 2023-09-28 07:59 | Outpatient (REF) | payer OTHER, SELFPAY ==
[2023-09-28 09:08] LABS: Hemoglobin 13.6 g/dl (12.0-16.0); Mean Corpuscular HGB Conc 32.4 g/dl (31.0-35.0); Mean Corpuscular Hemoglobin 30.7 pg (27.0-33.0); Mean Corpuscular Volume 94.8 fL (80.0-98.0); Mean Platelet Volume 9.7 fL (9.4-12.3); Platelet Count 253 X10*3/uL (160-400); Red Blood Count 4.43 X10*6/uL (4.20-5.50); Red Cell Distribution Width 13.1 % (11.0-16.0); White Blood Count 6.6 X10*3/uL (4.8-10.8)
[2023-09-28 09:51] LABS: Alanine Aminotransferase 35 U/L (0-31); Albumin Level 4.5 g/dL (3.5-5.0); Alkaline Phosphatase 59 U/L (39-117); Anion Gap 13 (12-20); Aspartate Amino Transferase 28 U/L (5-31); Bilirubin Total 0.3 mg/dL (0.0-1.0); Blood Urea Nitrogen 22 mg/dL (9-16); Calcium 10.1 mg/dL (8.4-10.2); Carbon Dioxide 28 mmol/L (22-29); Chloride 103 mmol/L (96-108); Cholesterol 188 mg/dL (<200); Estimated Glomerular Filt Rate > 60; Glucose Fasting 96 mg/dL (60-99); HDL Cholesterol 57 mg/dL (>40); LDL Cholesterol Calculated 113 mg/dL (<100); Potassium 4.4 mmol/L (3.3-5.1); Sodium 140 mmol/L (135-145); Total Protein 7.3 g/dL (6.5-8.0); Triglycerides 90 mg/dL (<150)
[2023-09-28 10:10] LABS: Vitamin D 25-OH Total 57.6 ng/mL (>30)
== END 2023-09-28 08:00 | disposition home or self-care (01) ==
LOC: HO.LAB 07:59
PROVIDERS: PCP Physician Assistant; Visit Provider Physician Assistant
DX: E55.9 Vitamin D deficiency, unspecified (principal); E78.2 Mixed hyperlipidemia; E03.9 Hypothyroidism, unspecified; F40.10 Social phobia, unspecified
CPT/HCPCS: 36415; 80053; 80061; 82306; 84443; 85027

== ENCOUNTER 2023-10-08 16:39 | Outpatient (AMB) | payer OTHER, SELFPAY ==
--- NOTE | 2023-10-08 14:25 | A.OFFPSYCH_ITS ---
Intake Intake Visit Reasons: depression Allergies Anesthetics - Amide Type - Select A [ANESTHETICS - AMIDE TYPE] Allergy (Severe, Verified 09/13/23 14:17) Hyperthermia from general anesthesia Anesthetics - Ameena Type- Parabens [ANESTHETICS - AMEENA TYPE- PARABENS] Allergy (Severe, Verified 09/13/23 14:17) hyperthermia from general anesthesia General anesthesias Allergy (Severe, Verified 09/13/23 14:17) malignant hyperthermia-age 9 at [facility],no T [facility] A done,[facility] [place] Medication List - Last Reconciled 10/08/23 by Frank Sorto MD buprenorphine-naloxone 8-2 mg 0.5 film sublingual DAILY cariprazine (Vraylar) 1.5 mg PO DAILY docusate sodium (Colace) 100 mg PO DAILY ergocalciferol (vitamin D2) 1,250 mcg PO QWEEK 3 months esketamine (Spravato) 0 mg intranasal glycopyrrolate 1 mg PO TID 30 days levothyroxine 137 mcg PO DAILY 30 days simvastatin 10 mg PO BEDTIME 90 days vortioxetine 20 mg PO DAILY HPI- Psychiatric Chief Complaint: depression HPI Narrative: Patient generally doing well mood more stable has been helping her mother out. Feels significantly better on Vraylar 1.5 mg no abnormal movements noted patient aware of risks benefits alternatives. She is on low-dose Suboxone she is getting spravato. Continues on Trintellix mood more stable better able to function with less preoccupation. She is post Angelica Colvin. At some point for therapy. Patient has been doing okay 1 of her dogs running into the street in getting killed in a car accident. This was sad but did not trigger severe depression no self-harming thoughts Past Psychiatric History: There is a history of significant depressive symptoms past treatment with ECT past treatment with multiple SSRIs Cymbalta Abifrancis Garner Serviet. Patient does have a history of significant suicide attempt Mental Status Exam Mental Status Exam Narrative: Mental Status Exam Narrative: Appearance: Casually dressed appropriately groomed/no abnormal movements noted no oral facial dyskinesia Behavior: Cooperative psychomotor: Normal activity Speech: Clear Thought proccess logical Thought content: future oriented generally feeling better Mood: Mood described as okay Affect: Martines affect SI:denies HI:denies VH/AH:none Delusions: None Insight/judgment: Generally good Memory/cog: Intact Telehealth Telehealth Location of provider rendering services: practice address Location of patient: address on file Patient Identification confirmed using: Name, : Yes Telehealth method: video Patient verbally consented to treatment: Yes Patient verbally consented to billing insurance company: Yes Patient informed of any privacy concerns related to visit: Yes Minutes spent on Phone/Video with Pt.: 20 Assessment and Plan Counseling and coordination of Care Details: I spent [] minutes reviewing the record, seeing the patient and documenting in the medical record. Counseling provided to the patient/caregiver as outlined below. Addressed patient/caregiver concerns regarding current medication regime including effective adherence. Addressed patient/caregiver concerns regarding diagnosis and prognosis including accuracy of diagnosis, prognosis over time, impact of diagnosis. Addressed patient/caregiver concerns regarding impact of recent stressors. [facility] Medical History (Updated 09/17/23 @ 07:31 by Александр Chao PA-C) Tobacco dependence Tubulovillous adenoma Body dysmorphic disorder Social anxiety disorder Major depression, recurrent, chronic History of electroconvulsive therapy Malignant hyperthermia due to anesthesia Surgical History Hx of colonoscopy Hx of parotidectomy History of open reduction and internal fixation (ORIF) procedure Family History Father Stroke Mother Ovarian cancer Brother Asthma Sister Hyperthyroidism Social History Housing: House Are you a primary career development engineer to a significant other at home: No Do you presently have visiting nurse or other home services: No Alcohol intake: former Patient Tobacco Use Status: Former Tobacco user Quit Date: 11/15/22 e-Cigarette/Vaping Use: Never Used Second Hand Smoke Exposure: No Substance Use Type: Prescription Drugs service: No Current occupational status: unemployed Cognitive needs: No Hearing needs: No Vision needs: No Social History: The patient is living with her mother she is on 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
== END 2023-10-08 16:39 | disposition home or self-care (01) ==
LOC: HO.HOP 16:39
PROVIDERS: PCP Physician Assistant; Visit Provider Psychiatry & Neurology Psychiatry
DX: F33.1 Major depressive disorder, recurrent, moderate (principal)
CPT/HCPCS: 99213

== ENCOUNTER → 2023-10-08 16:39 | Outpatient (BNVA) | payer OTHER, SELFPAY | PROVIDERS: PCP Physician Assistant; Visit Provider Psychiatry & Neurology Psychiatry ==

== ENCOUNTER 2024-01-10 13:27 | Outpatient (AMB) | payer OTHER, SELFPAY ==
--- NOTE | 2024-01-10 14:11 | MHC.OFFVISPS ---
Intake Intake Visit Reasons: Depression Allergies Anesthetics - Amide Type - Select A [ANESTHETICS - AMIDE TYPE] Allergy (Severe, Verified 09/13/23 14:17) Hyperthermia from general anesthesia Anesthetics - Ameena Type- Parabens [ANESTHETICS - AMEENA TYPE- PARABENS] Allergy (Severe, Verified 09/13/23 14:17) hyperthermia from general anesthesia General anesthesias Allergy (Severe, Verified 09/13/23 14:17) malignant hyperthermia-age 9 at T [facility] A,no T and A done,[facility] [place] Medication List - Last Reconciled 01/22/24 by Frank Sorto MD buprenorphine-naloxone 8-2 mg 0.5 film sublingual DAILY cariprazine (Vraylar) 1.5 mg PO DAILY docusate sodium (Colace) 100 mg PO DAILY ergocalciferol (vitamin D2) 1,250 mcg PO QWEEK 3 months esketamine (Spravato) 0 mg intranasal glycopyrrolate 1 mg PO TID 30 days levothyroxine 137 mcg PO DAILY 30 days simvastatin 10 mg PO BEDTIME 90 days vortioxetine 20 mg PO DAILY HPI- Psychiatric Chief Complaint: Depression HPI Narrative: Patient seen psychiatric follow-up. Patient states she has generally been feeling significantly improved some flattening remain sober. Continues live with her mother. Has thoughts at times about looking at getting her license back. Patient has been better on a combination of Trintellix and Vraylar no abnormal movements noted by patient she continues on Suboxone and also on Suboxone Past Psychiatric History: There is a history of significant depressive symptoms past treatment with ECT past treatment with multiple SSRIs Thelma Curiel. Patient does have a history of significant suicide attempt Mental Status Exam Mental Status Exam Narrative: Mental Status Exam Narrative: Appearance: Casually dressed appropriately groomed/no abnormal movements noted no oral facial dyskinesia Behavior: Cooperative psychomotor: Normal activity Speech: Clear Thought proccess logical Thought content: future oriented generally feeling better Mood: Mood described as okay Affect: Martines affect SI:denies HI:denies VH/AH:none Delusions: None Insight/judgment: Generally good Memory/cog: Intact Assessment and Plan Assessment & Plan (1) Major depression, recurrent, chronic: Status: Acute Code(s): F33.9 - Major depressive disorder, recurrent, unspecified (2) Body dysmorphic disorder: Status: Acute Code(s): F45.22 - Body dysmorphic disorder (3) Social anxiety disorder: Status: Acute Code(s): F40.10 - Social phobia, unspecified Plan Patient has generally stable has had increased diaphoresis she is on glyco correlate for this by her PCP appears most likely to be related to the Trintellix 20 mg patient has been stable wishes to maintain dose. She is on Suboxone 4 mg has spravato weekly Vraylar 1.5 mg. Future oriented better range of affect has never been able to connect in outpatient counseling on a regular basis. She remains sober. No abnormal movements noted exam patient aware of potential long-term risks with Vraylar including tardive dyskinesia has had ECT in the past not a candidate for TMS because of a ear surgery as a child Medications: Refilled vortioxetine 20 mg PO DAILY 90 tabs 1RF cariprazine (Vraylar) 1.5 mg PO DAILY 90 caps 1RF Counseling and coordination of Care Details-Self Mgmt counseling: Issues related to chronic depression recommendations for behavioral activation challenging assumptions Medication management counseling: Effectiveness, Side effects and Dosing range Details: I spent [] minutes reviewing the record, seeing the patient and documenting in the medical record. Counseling provided to the patient/caregiver as outlined below. Addressed patient/caregiver concerns regarding current medication regime including effective adherence. Addressed patient/caregiver concerns regarding diagnosis and prognosis including accuracy of diagnosis, prognosis over time, impact of diagnosis. Addressed patient/caregiver concerns regarding impact of recent stressors. [facility] Medical History (Updated 09/17/23 @ 07:31 by Алексанрд Chao PA-C) Tobacco dependence Tubulovillous adenoma Body dysmorphic disorder Social anxiety disorder Major depression, recurrent, chronic History of electroconvulsive therapy Malignant hyperthermia due to anesthesia Surgical History Hx of colonoscopy Hx of parotidectomy History of open reduction and internal fixation (ORIF) procedure Family History Father Stroke Mother Ovarian cancer Brother Asthma Sister Hyperthyroidism Social History Housing: House Are you a primary ambulatory care nurse to a significant other at home: No Do you presently have visiting nurse or other home services: No Alcohol intake: former Patient Tobacco Use Status: Former Tobacco user e-Cigarette/Vaping Use: Never Used Second Hand Smoke Exposure: No Substance Use Type: Prescription Drugs service: No Current occupational status: unemployed Cognitive needs: No Hearing needs: No Vision needs: No Social History: The patient is living with her mother 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
== END 2024-01-10 14:10 | disposition home or self-care (01) ==
LOC: HO.HOP 13:27
PROVIDERS: PCP Physician Assistant; Visit Provider Psychiatry & Neurology Psychiatry
DX: F33.9 Major depressive disorder, recurrent, unspecified (principal); F45.22 Body dysmorphic disorder; F40.10 Social phobia, unspecified
CPT/HCPCS: 99214

== ENCOUNTER → 2024-01-10 13:27 | Outpatient (BNVA) | payer OTHER, SELFPAY | PROVIDERS: PCP Physician Assistant; Visit Provider Psychiatry & Neurology Psychiatry | DX: F33.9 Major depressive disorder, recurrent, unspecified (principal); F45.22 Body dysmorphic disorder; F40.10 Social phobia, unspecified | CPT/HCPCS: 99212 ==

== ENCOUNTER 2024-01-15 15:38 | Outpatient (REF) | payer OTHER, SELFPAY ==
--- NOTE | ~2024-01-15 | MM_ITS ---
EXAMINATION: MM SCREENING DIGITAL BREAST TOMOSYNTHESIS, BILATERAL CLINICAL INFORMATION: Screening. Asymptomatic. COMPARISON: Mammography: This study is compared with prior exams dating back to TECHNIQUE: Digital breast tomosynthesis is performed in both the craniocaudal and mediolateral oblique views along with computer-aided detection (CAD). Synthesized 2D images are generated from the tomosynthesis. FINDINGS: The breasts are extremely dense, which lowers the sensitivity of mammography (ACR BI-RADS breast composition Category d). Right: Focal asymmetry in the upper central breast middle to posterior depth with associated architectural distortion. No suspicious calcifications or other abnormal findings Left: Asymmetry superior breast posterior depth on MLO view. Asymmetry lateral breast posterior depth on CC view. There are no abnormal calcifications, or other abnormalities. MM/MM tomosynthesis screening BI IMPRESSION: Right focal asymmetry and left asymmetries. Additional imaging and possible ultrasound are recommended at this time. ASSESSMENT: BI-RADS BI-RADS 0 - Incomplete: Needs additional Imaging. RECOMMENDATION: 1. Additional views of the bilateral breasts 2. Targeted ultrasound if warranted after review of the additional views. 3. Radiology department staff will contact the patient for additional imaging. Additional Imaging required This examination should not preclude the clinical evaluation of a suspicious palpable abnormality. This patient's information was entered into a reminder system with a target due date for their next mammogram. Electronically signed by: Amrita Soriano DO 02/13/2024 05:39 PM EDMariana
== END 2024-01-15 15:39 | disposition home or self-care (01) ==
LOC: HO.MAMMO 15:38
PROVIDERS: PCP Physician Assistant; Visit Provider Physician Assistant
DX: Z12.31 Encounter for screening mammogram for malignant neoplasm of breast (principal)
CPT/HCPCS: 77063; 77067

== ENCOUNTER → 2024-01-15 15:45 | Outpatient (BNV) | payer OTHER, SELFPAY | PROVIDERS: PCP Physician Assistant; Visit Provider Internal Medicine | DX: Z12.31 Encounter for screening mammogram for malignant neoplasm of breast (principal) | CPT/HCPCS: 77063; 77067 ==

== ENCOUNTER 2024-04-03 13:08 | Outpatient (REF) | payer OTHER, SELFPAY ==
--- NOTE | ~2024-04-03 | US_ITS ---
EXAMINATION: MM DIAGNOSTIC DIGITAL BREAST TOMOSYNTHESIS, BILATERAL CLINICAL INFORMATION: Call back from screening for bilateral focal asymmetries. COMPARISON: Mammography: Comparison is made with relevant prior exams. TECHNIQUE: Digital breast mammography with tomosynthesis is performed in both the craniocaudal and mediolateral oblique views along with computer-aided detection (CAD). Bilateral Limited ultrasound. FINDINGS: The breasts are extremely dense, which lowers the sensitivity of mammography (ACR BI-RADS breast composition Category d). Left: The previously seen focal asymmetry upper central to slightly outer left breast posterior depth does not persist on additional imaging projections and likely represented overlapping breast tissue. No suspicious calcifications or other abnormal findings. Left ultrasound: Targeted color Doppler ultrasound scanning on left breast at 2:00 3 cm from the nipple demonstrates an incidental minimally complicated cyst versus solid mass measuring 3 x 3 x 4 mm. Targeted color Doppler ultrasound scanning in the superior breast from 11-3 o'clock demonstrates normal fibronodular breast tissue. Right: Focal asymmetry in the upper central breast posterior depth partially effaces on additional imaging projections. No suspicious calcifications or other abnormal findings. Right ultrasound: Targeted color Doppler ultrasound scanning from 10-2 o'clock demonstrates normal fibroglandular breast tissue. Results are discussed with the patient at time of visit. US/US breast BI limited mamm only IMPRESSION: Left: Complicated cyst versus solid mass at 2:00 on ultrasound. Recommend 6 month follow-up ultrasound for further evaluation of stability. Right: Focal asymmetry upper central breast which partially effaces and without sonographic correlate. Recommend 6 month follow-up mammogram for further evaluation of stability. ASSESSMENT: BI-RADS BI-RADS 3 - Probably benign finding(s) - 6 month follow-up suggested RECOMMENDATION: 1 year F/U (accession [id number]), 6 Month F/U (accession [id number]) This patient's information was entered into a reminder system with a target due date for their next mammogram. Electronically signed by: Amrita Soriano DO 04/04/2024 08:21 AM [facility]
--- NOTE | ~2024-04-03 | MM_ITS ---
EXAMINATION: MM DIAGNOSTIC DIGITAL BREAST TOMOSYNTHESIS, BILATERAL CLINICAL INFORMATION: Call back from screening for bilateral focal asymmetries. COMPARISON: Mammography: Comparison is made with relevant prior exams. TECHNIQUE: Digital breast mammography with tomosynthesis is performed in both the craniocaudal and mediolateral oblique views along with computer-aided detection (CAD). Bilateral Limited ultrasound. FINDINGS: The breasts are extremely dense, which lowers the sensitivity of mammography (ACR BI-RADS breast composition Category d). Left: The previously seen focal asymmetry upper central to slightly outer left breast posterior depth does not persist on additional imaging projections and likely represented overlapping breast tissue. No suspicious calcifications or other abnormal findings. Left ultrasound: Targeted color Doppler ultrasound scanning on left breast at 2:00 3 cm from the nipple demonstrates an incidental minimally complicated cyst versus solid mass measuring 3 x 3 x 4 mm. Targeted color Doppler ultrasound scanning in the superior breast from 11-3 o'clock demonstrates normal fibronodular breast tissue. Right: Focal asymmetry in the upper central breast posterior depth partially effaces on additional imaging projections. No suspicious calcifications or other abnormal findings. Right ultrasound: Targeted color Doppler ultrasound scanning from 10-2 o'clock demonstrates normal fibroglandular breast tissue. Results are discussed with the patient at time of visit. MM/MM tomosynthesis added view BI IMPRESSION: Left: Complicated cyst versus solid mass at 2:00 on ultrasound. Recommend 6 month follow-up ultrasound for further evaluation of stability. Right: Focal asymmetry upper central breast which partially effaces and without sonographic correlate. Recommend 6 month follow-up mammogram for further evaluation of stability. ASSESSMENT: BI-RADS BI-RADS 3 - Probably benign finding(s) - 6 month follow-up suggested RECOMMENDATION: 1 year F/U (accession [id number]), 6 Month F/U (accession [id number]) This patient's information was entered into a reminder system with a target due date for their next mammogram. Electronically signed by: Amrita Soriano DO 04/04/2024 08:21 AM [facility] [place], [place]
== END 2024-04-03 13:09 | disposition home or self-care (01) ==
LOC: HO.MAMMO 13:08
PROVIDERS: PCP Physician Assistant; Visit Provider Physician Assistant
DX: N64.89 Other specified disorders of breast (principal)
CPT/HCPCS: 76642; 77062; 77066

== ENCOUNTER → 2024-04-03 13:15 | Outpatient (BNV) | payer OTHER, SELFPAY | PROVIDERS: PCP Physician Assistant; Visit Provider Internal Medicine | DX: R92.8 Other abnormal and inconclusive findings on diagnostic imaging of breast (principal) | CPT/HCPCS: 76642; 77066; G0279 ==

== ENCOUNTER 2024-04-10 13:30 | Outpatient (AMB) | payer OTHER, SELFPAY ==
--- NOTE | 2024-04-10 13:58 | MHC.OFFVISPS ---
Intake Intake Visit Reasons: Depression Allergies Anesthetics - Amide Type - Select A [ANESTHETICS - AMIDE TYPE] Allergy (Severe, Verified 09/13/23 14:17) Hyperthermia from general anesthesia Anesthetics - Ameena Type- Parabens [ANESTHETICS - AMEENA TYPE- PARABENS] Allergy (Severe, Verified 09/13/23 14:17) hyperthermia from general anesthesia General anesthesias Allergy (Severe, Verified 09/13/23 14:17) malignant hyperthermia-age 9 at T and A,no T and A done,[facility] [place] HPI- Psychiatric Chief Complaint: Depression HPI Narrative: patient seen psychiatric follow-up. The patient's mood has not been overly depressed but does feel somewhat overwhelmed anxiety difficulty leaving the house extensive social anxiety. 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 Patient maintains a low dose of Suboxone is concerned to totally go off. She continues on spravato weekly denies SI. the patient has chronic low self-esteem has been tied in to distorted imaging regarding her looks and also what happened to her in the past regarding her addiction and its effects on her life and career. Living with her mother has been stabilizing she remains sober patient was on a waiting list with Dr. Solano who specializes OCD anxiety disorders Past Psychiatric History: There is a history of significant depressive symptoms past treatment with ECT past treatment with multiple SSRIs Cymbalta Wally Curiel. Patient does have a history of significant suicide attempt Mental Status Exam Mental Status Exam Narrative: Mental Status Exam Narrative: Appearance: Casually dressed appropriately groomed/no abnormal movements noted no oral facial dyskinesia Behavior: Cooperative psychomotor: Normal activity Speech: Clear Thought proccess logical Thought content: future oriented but has ongoing significant anxiety regarding herself regarding leaving the house regarding seeing other people going to appointment Mood: Mood described as okay Affect: constricted affect SI:denies HI:denies VH/AH:none Delusions: None Insight/judgment: distorted thinking regarding herself extremely self-critical Memory/cog: Intact Assessment and Plan Assessment & Plan (1) Major depression, recurrent, chronic: Status: Acute Code(s): F33.9 - Major depressive disorder, recurrent, unspecified (2) Social anxiety disorder: Status: Acute Code(s): F40.10 - Social phobia, unspecified (3) Body dysmorphic disorder: Status: Acute Code(s): F45.22 - Body dysmorphic disorder Plan pt has had inc anxiety ruminating quite self critical urged to see dr solano and to call nursing board to get better sense of how to RTW. Discussed use of gabapentin for anxiety alongside clear need gain tools for managing her thoughts assumptions. Pt stated she felt safe would not self harm.Also discussed the use of propranolol low dose for anticipatory anxiety appts mtgs etc perhaps 1 x day If no benefit inc vraylar 3 mg daily Medications: New propranolol 10 mg PO DAILY PRN 30 tabs 2RF anticipatory anxiety gabapentin 100 - 200 mg (1 - 2 x 100 mg) PO TID 180 caps 2RF Refilled cariprazine (Vraylar) 1.5 mg PO DAILY 90 caps 1RF Discontinued glycopyrrolate Discontinued Reason: Doctor's Order 1 mg PO TID 30 days 90 tabs 3RF R61 - Generalized hyperhidrosis Counseling and coordination of Care Pt. Self Management counseling: Breathing, Behavior activation and Cognitive restructuring Medication management counseling: Effectiveness, Side effects and Dosing range Diagnosis and Prognosis Counseling: Impact of diagnosis on life functions and Adequacy of current interventions Details-Diagnosis/Prognosis counseling: no evidence of TD is not eligible for TMS Details: I spent [39] minutes reviewing the record, seeing the patient and documenting in the medical record. Counseling provided to the patient/caregiver as outlined below. Addressed patient/caregiver concerns regarding current medication regime including effective adherence. Addressed patient/caregiver concerns regarding diagnosis and prognosis including accuracy of diagnosis, prognosis over time, impact of diagnosis. Addressed patient/caregiver concerns regarding impact of recent stressors. [facility] Medical History (Updated 09/17/23 @ 07:31 by Александр Chao PA-C) Tobacco dependence Tubulovillous adenoma Body dysmorphic disorder Social anxiety disorder Major depression, recurrent, chronic History of electroconvulsive therapy Malignant hyperthermia due to anesthesia Surgical History Hx of colonoscopy Hx of parotidectomy History of open reduction and internal fixation (ORIF) procedure Family History Father Stroke Mother Ovarian cancer Brother Asthma Sister Hyperthyroidism Social History Housing: House Are you a primary clinical care leader to a significant other at home: No Do you presently have visiting nurse or other home services: No Alcohol intake: former Patient Tobacco Use Status: Former Tobacco user e-Cigarette/Vaping Use: Never Used Second Hand Smoke Exposure: No Substance Use Type: Prescription Drugs service: No Current occupational status: unemployed Cognitive needs: No Hearing needs: No Vision needs: No Social History: The patient is living with her mother she is on disability 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
== END 2024-04-10 14:01 | disposition home or self-care (01) ==
LOC: HO.HOP 13:30
PROVIDERS: PCP Physician Assistant; Visit Provider Psychiatry & Neurology Psychiatry
DX: F33.9 Major depressive disorder, recurrent, unspecified (principal); F40.10 Social phobia, unspecified; F45.22 Body dysmorphic disorder
CPT/HCPCS: 90833; 99213

== ENCOUNTER → 2024-04-10 13:30 | Outpatient (BNVA) | payer OTHER, SELFPAY | PROVIDERS: PCP Physician Assistant; Visit Provider Psychiatry & Neurology Psychiatry | DX: F33.9 Major depressive disorder, recurrent, unspecified (principal); F40.10 Social phobia, unspecified; F45.22 Body dysmorphic disorder; F11.10 Opioid abuse, uncomplicated; R61 Generalized hyperhidrosis; Z71.89 Other specified counseling | CPT/HCPCS: 99212 ==

== ENCOUNTER 2024-05-15 10:49 | Outpatient (REF) | payer OTHER, SELFPAY ==
[2024-05-15 12:38] LABS: Amphetamine Screen Urine Not Detected (Not Detect); Barbiturates, Urine Not Detected (Not Detect); Benzodiazepines Screen Urine Not Detected (Not Detect); Buprenorphine Scr Positive (Not Detect); Cannabinoid Screen Urine Not Detected (Not Detect); Cocaine Screen Urine Not Detected (Not Detect); Fentanyl, urine Not Detected (Not Detect); Methadone Screen, Urine Not Detected (Not Detect); Opiate Screen Urine Not Detected (Not Detect); Oxycodone Screen Urine Not Detected (Not Detect); Phencyclidine Screen Urine Not Detected (Not Detect)
[2024-05-15 12:50] LABS: Alanine Aminotransferase 23 U/L (0-31); Albumin Level 4.4 g/dL (3.5-5.0); Alkaline Phosphatase 73 U/L (39-117); Anion Gap 9 (12-20); Aspartate Amino Transferase 22 U/L (5-31); Bilirubin Total 0.5 mg/dL (0.0-1.0); Blood Urea Nitrogen 9 mg/dL (9-16); Calcium 9.3 mg/dL (8.4-10.2); Carbon Dioxide 30 mmol/L (22-29); Chloride 105 mmol/L (96-108); Cholesterol 172 mg/dL (<200); Estimated Glomerular Filt Rate > 60; Glucose Fasting 105 mg/dL (60-99); HDL Cholesterol 48 mg/dL (>40); LDL Cholesterol Calculated 102 mg/dL (<100); Potassium 4.4 mmol/L (3.3-5.1); Sodium 140 mmol/L (135-145); Triglycerides 114 mg/dL (<150)
[2024-05-15 12:53] LABS: TSH reflex Free T4 0.69 uIU/mL (0.32-4.0)
== END 2024-05-15 10:50 | disposition home or self-care (01) ==
LOC: HO.LAB 10:49
PROVIDERS: Absent Provider Psychiatry & Neurology Psychiatry; PCP Physician Assistant; Visit Provider Physician Assistant
DX: F33.2 Major depressive disorder, recurrent severe without psychotic features (principal); E03.9 Hypothyroidism, unspecified; E78.2 Mixed hyperlipidemia; F11.20 Opioid dependence, uncomplicated
CPT/HCPCS: 36415; 80053; 80061; 80307; 84443

== ENCOUNTER 2024-05-20 10:07 | Outpatient (AMB) | payer OTHER, SELFPAY ==
[2024-05-20 10:09] VITALS: BP 120/70; PULSE 90; O2SAT 97; BMI 26.8
--- NOTE | 2024-05-20 10:09 | MHC.PC.OV ---
Vital Signs 05/20/24 10:09 Height 5 ft 8 in Weight 176 lb 6 oz BMI 26.8 BP 120/70 Blood Pressure Location Lt brachial Position Sitting Pulse 90 Pulse Source Pulse Oximeter Pulse Oximetry (%) 97 Oxygen Delivery Method Room Air Intake Visit Reasons: f/u hypothyroid [employer] Required: No Accompanied by: Self / Same As Patient Allergies Anesthetics - Amide Type - Select A [ANESTHETICS - AMIDE TYPE] Allergy (Severe, Verified 05/20/24 10:32) Hyperthermia from general anesthesia Anesthetics - Ameena Type- Parabens [ANESTHETICS - AMEENA TYPE- PARABENS] Allergy (Severe, Verified 05/20/24 10:32) hyperthermia from general anesthesia General anesthesias Allergy (Severe, Verified 05/20/24 10:32) malignant hyperthermia-age 9 at T and A,no T [place] A [place] [place] Medication List - Last Reconciled 05/20/24 by Александр Chao PA-C buprenorphine-naloxone 8-2 mg 0.5 film sublingual DAILY cariprazine (Vraylar) 1.5 mg PO DAILY docusate sodium (Colace) 100 mg PO DAILY ergocalciferol (vitamin D2) 1,250 mcg PO QWEEK 3 months esketamine (Spravato) 0 mg intranasal gabapentin 100 - 200 mg (1 - 2 x 100 mg) PO TID levothyroxine 137 mcg PO DAILY 30 days propranolol 10 mg PO DAILY PRN simvastatin 10 mg PO BEDTIME 90 days vortioxetine 20 mg PO DAILY Tobacco use date assessed: 09/13/23 Dental Screening Dental Screen Date: 09/13/23 HPI f/u hypothyroid HPI Details Patient is a 54-year-old female here today for a follow-up visit Patient has a past medical history significant for major depressive disorder, social anxiety, history of opiate use disorder, tobacco dependency, hypothyroidism, hyperlipidemia. CHRONIC MEDICAL CONDITIONS--> Major depressive disorder: Continues to follow psychiatry. Now doing ketamin treatment for her Depression and she feels it is very helpful for her mood. Also has opiate dependency thus continues on Suboxone at a bit of a higher dose now. .. .. Hyperlipidemia: Most recent lipid panel showing much improved total cholesterol and LDL, continues on statin therapy without side effect. .. Hypothyroidism: Continues on daily use of levothyroxine 137mcg, most recent TSH was acceptable. Will continue to follow TSH to assure normal. Laboratory Tests 09/27/22 05/11/23 09/28/23 12:46 13:04 08:14 Creatinine Cholesterol LDL Cholesterol, C alc 113 H TSH 5.40 H 1.23 2.60 Ur Buprenorphine S crn 05/15/24 05/15/24 11:07 11:10 Creatinine 0.81 Cholesterol 172 LDL Cholesterol, C alc 102 H TSH 0.69 Ur Buprenorphine S crn Positive H PFSH Medical History Tobacco dependence Tubulovillous adenoma Body dysmorphic disorder Social anxiety disorder Major depression, recurrent, chronic History of electroconvulsive therapy Malignant hyperthermia due to anesthesia Surgical History Hx of colonoscopy Hx of parotidectomy History of open reduction and internal fixation (ORIF) procedure Family History Father Stroke Mother Ovarian cancer Brother Asthma Sister Hyperthyroidism Social History Housing: House Are you a primary customer care agent to a significant other at home: No Do you presently have visiting nurse or other home services: No Alcohol intake: former Patient Tobacco Use Status: Former Tobacco user e-Cigarette/Vaping Use: Never Used Second Hand Smoke Exposure: No Substance Use Type: Prescription Drugs service: No Current occupational status: unemployed Cognitive needs: No Hearing needs: No Vision needs: No Questionnaire Thrive Questionnaire Date Thrive assessed: 09/13/23 JESUS-7 AMB Questionnaire JESUS-7 Date JESUS - 7 assessed: 09/13/23 Source: Developed by Drs. Nicola Alvarado, Natalie Downs, Javi Cardenas and colleagues, with an educational claude from [employer]. Review of Systems Const Denies headache(s) Eyes Denies loss of vision ENT Denies vertigo, Denies dizziness, Denies headache(s) and Denies sore throat Card Denies chest pain, Denies leg edema and Denies lightheadedness Resp Denies cough, Denies hemoptysis and Denies wheezing GI Denies abdominal pain, Denies melena, Denies constipation, Denies diarrhea and Denies vomiting Denies urinary frequency, Denies dysuria and Denies urinary urgency Musc Denies arthralgias, Denies joint swelling, Denies numbness and Denies tingling Neuro Denies Abnormal speech present, Denies behavioral changes, Denies vertigo, Denies dizziness, Denies headache(s), Denies loss of vision, Denies memory loss, Denies numbness and Denies tingling Psych Denies anxiety, Denies behavioral changes, Denies depression, Denies memory loss and Denies panic attacks Bahman/Lymph Denies easy bleeding and Denies easy bruising Aller/Immun Denies wheezing Physical exam (Primary Care) Vital Signs: Last Vital Signs Pulse 90 05/20/24 10:09 BP 120/70 05/20/24 10:09 Pulse Ox 97 05/20/24 10:09 Oxygen Delivery Method Room Air 05/20/24 10:09 BMI result Body Mass Index 26.8 Tobacco/Smoking Status: Tobacco use Status Tobacco use date assessed 09/13/23 05/20/24 10:10 Patient Tobacco Use Status Former Tobacco user 05/20/24 10:10 e-Cigarette/Vaping Use Never Used 05/20/24 10:10 Thrive Assessment: Date of Thrive Assessment Date Thrive assessed 09/13/23 05/20/24 10:10 Const General: healthy appearing, no acute distress, alert and awake Nutritional Appearance: well nourished Orientation/consciousness: oriented to person, oriented to place and oriented to time HENMT Ears: TM's normal bilaterally General nose exam: Normal nasal mucous membranes and turbinates present Eyes Conjunctivae: conjunctivae normal Sclerae: sclerae normal Pupils: Equal, round and reactive pupils present Neck Neck: Yes no lymphadenopathy and Yes no JVD Thyroid: Thyroid normal Carotids: no bruits Resp Effort & Inspection: normal respiratory effort and not tachypneic Auscultation: no crackles, no rales, no rhonchi and no wheezes Cardio Rate: regular rate Rhythm: regular rhythm Heart sounds: no murmurs and normal S1 and S2 GI Palpation (GI): Soft to palpation, nontender, no hepatomegaly and no splenomegaly Auscultation: normal bowel sounds Skin General skin exam: no rashes or lesions noted and dry skin Neuro General: oriented to person, oriented to place and oriented to time Cranial nerves: Yes Equal, round and reactive pupils present Speech: No Abnormal speech present Gait exam (Neuro): Normal gait present Motor exam (neuro): no tremor noted Extrem Right upper extremity: full ROM Left upper extremity: full ROM Right lower extremity: full ROM; no edema Left lower extremity: full ROM; no edema Psych Mental Status: mental status grossly normal Speech and movement: Normal speech and movement present Affect: normal affect Attitude: cooperative Thought process: Normal thought process present Office Procedures Flu Questionnaire Does the patient have a severe egg allergy?: No Does the patient have severe life threatening allergies?: No Does the patient have a fever or illness today?: No Has the patient ever had Guillain-Olney Syndrome?: No Immunizations Fluarix Triv [id number] (PF) 45 mcg (15 mcg x 3)/0.5 mL IM syringe Performing Provider: Александр Chao PA-C [facility] [place] Administered by: ENRRIQUE Buck on 05/20/24 10:31 Dose Route Admin Location Dispensed Lot Number Expiration Date [facility] 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 0.5 mL IM Left Deltoid 0.5 mL [id number] 11/24/24 70700-607-65 [employer] VIS Given Date VIS Provided VIS Publication Date 05/20/24 Single Vaccine 20 Eligibility Eligibility Date Funding Source Not [facility] Eligible 05/20/24 Private Coding Level of Care Code Est Pt Level 4 (98030) Diagnoses Mixed hyperlipidemia E78.2 Hyperlipidemia type: mixed hyperlipidemia Hypothyroidism, unspecified type E03.9 Hypothyroidism type: unspecified Assessment & Plan Assessment & Plan (1) HLD (hyperlipidemia): Code(s): E78.5 - Hyperlipidemia, unspecified Category: Medical Qualifiers: Hyperlipidemia type: mixed hyperlipidemia Qualified Code(s): E78.2 - Mixed hyperlipidemia Plan: Patient's most recent lipid panel showing excellent control over total cholesterol and LDL. Will continue her current dose of statin therapy with goal LDL to remain below 130. (2) Hypothyroidism: Code(s): E03.9 - Hypothyroidism, unspecified Category: Medical Qualifiers: Hypothyroidism type: unspecified Qualified Code(s): E03.9 - Hypothyroidism, unspecified Plan: Patient's most recent TSH stable at 0.69. Will continue her current dose of levothyroxine 137 mcg daily. Will continue to follow TSH to assure normal. Orders: Orders Influenza [id number] Immunization Today Z23 - Encounter for immunization Vitamin D 25-OH Total Today E55.9 - Vitamin D deficiency, unspecified TSH reflex Free T4 Today E03.9 - Hypothyroidism, unspecified Comprehensive [place]. Panel Fast Today E78.2 - Mixed hyperlipidemia Lipid Panel Today E78.2 - Mixed hyperlipidemia Complete Blood Count no Diff Today E78.2 - Mixed hyperlipidemia Medications: Changed From levothyroxine 137 mcg PO DAILY 30 days 30 tabs 3RF E03.9 - Hypothyroidism, unspecified To levothyroxine 137 mcg PO DAILY 90 days 90 tabs 2RF E03.9 - Hypothyroidism, unspecified Refilled simvastatin 10 mg PO BEDTIME 90 days 90 tabs 3RF E78.2 - Mixed hyperlipidemia
== END 2024-05-20 10:42 | disposition home or self-care (01) ==
PROVIDERS: PCP Physician Assistant; Visit Provider Physician Assistant
DX: E78.2 Mixed hyperlipidemia (principal); E03.9 Hypothyroidism, unspecified; Z23 Encounter for immunization

== ENCOUNTER → 2024-05-20 10:07 | Outpatient (BNVA) | payer OTHER, SELFPAY | PROVIDERS: PCP Physician Assistant; Visit Provider Physician Assistant | DX: E03.9 Hypothyroidism, unspecified (principal); E78.2 Mixed hyperlipidemia; E55.9 Vitamin D deficiency, unspecified; F11.20 Opioid dependence, uncomplicated; Z23 Encounter for immunization; Z79.899 Other long term (current) drug therapy | CPT/HCPCS: 90471; 90656; 99212 ==

== ENCOUNTER 2024-07-11 11:33 | Outpatient (AMB) | payer OTHER, SELFPAY ==
--- NOTE | 2024-07-11 12:09 | MHC.OFFVISPS ---
Intake Intake Visit Reasons: depression Allergies Anesthetics - Amide Type - Select A [ANESTHETICS - AMIDE TYPE] Allergy (Severe, Verified 05/20/24 10:32) Hyperthermia from general anesthesia Anesthetics - Ameena Type- Parabens [ANESTHETICS - AMEENA TYPE- PARABENS] Allergy (Severe, Verified 05/20/24 10:32) hyperthermia from general anesthesia General anesthesias Allergy (Severe, Verified 05/20/24 10:32) malignant hyperthermia-age 9 at T and A,no T [place] A done[place] [place]PI- Psychiatric Chief Complaint: depression HPI Narrative: Patient has some increase in depressive and anxiety symptoms. Generally doing okay she will be selling her house she has been living with her mother. Patient remains sober she is on low-dose Suboxone. Has difficulty with motivation energy some agoraphobia symptoms Past Psychiatric History: There is a history of significant depressive symptoms past treatment with ECT past treatment with multiple SSRIs Thelma Curiel. Patient does have a history of significant suicide attempt Mental Status Exam Mental Status Exam Narrative: Mental Status Exam Narrative: Appearance: Casually dressed appropriately groomed/no abnormal movements noted no oral facial dyskinesia Behavior: Cooperative psychomotor: Normal activity Speech: Clear Thought proccess logical Thought content: future oriented but has ongoing significant anxiety regarding herself regarding leaving the house regarding seeing other people going to appointment selling her house Mood: Mood down Affect: constricted affect SI:denies HI:denies VH/AH:none Delusions: None Insight/judgment: distorted thinking regarding herself extremely self-critical ongoing Memory/cog: Intact Assessment and Plan Assessment & Plan (1) Major depression, recurrent, chronic: Status: Acute Code(s): F33.9 - Major depressive disorder, recurrent, unspecified (2) Social anxiety disorder: Status: Acute Code(s): F40.10 - Social phobia, unspecified (3) Body dysmorphic disorder: Status: Acute Code(s): F45.22 - Body dysmorphic disorder Plan Patient aware of risks benefits of being on antipsychotic for augmentation of depression has failed previously multiple antidepressant trials she is on spravato. Continue Trintellix 20 mg might do well with low-dose mirtazapine PHQ-9 in JESUS reviewed Medications: Changed From cariprazine 1.5 mg PO DAILY 90 caps 1RF To cariprazine 3 mg PO DAILY 90 caps 1RF Refilled vortioxetine 20 mg PO DAILY 90 tabs 1RF vortioxetine 20 mg PO DAILY 90 tabs 1RF Counseling and coordination of Care Pt. 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 Counseling provided to the patient/caregiver as outlined below. Addressed patient/caregiver concerns regarding current medication regime including effective adherence. Addressed patient/caregiver concerns regarding diagnosis and prognosis including accuracy of diagnosis, prognosis over time, impact of diagnosis. Addressed patient/caregiver concerns regarding impact of recent stressors. [facility] Medical History Tobacco dependence Tubulovillous adenoma Body dysmorphic disorder Social anxiety disorder Major depression, recurrent, chronic History of electroconvulsive therapy Malignant hyperthermia due to anesthesia Surgical History Hx of colonoscopy Hx of parotidectomy History of open reduction and internal fixation (ORIF) procedure Family History Father Stroke Mother Ovarian cancer Brother Asthma Sister Hyperthyroidism Social History Housing: House Are you a primary child care sitter to a significant other at home: No Do you presently have visiting nurse or other home services: No Alcohol intake: former Patient Tobacco Use Status: Former Tobacco user e-Cigarette/Vaping Use: Never Used Second Hand Smoke Exposure: No Substance Use Type: Prescription Drugs service: No Current occupational status: unemployed Cognitive needs: No Hearing needs: No Vision needs: No Social History: The patient is living with her mother she is on disability 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
== END 2024-07-11 12:02 | disposition home or self-care (01) ==
LOC: HO.HOP 11:33
PROVIDERS: PCP Physician Assistant; Visit Provider Psychiatry & Neurology Psychiatry
DX: F33.9 Major depressive disorder, recurrent, unspecified (principal); F40.10 Social phobia, unspecified; F45.22 Body dysmorphic disorder
CPT/HCPCS: 90833; 99213

== ENCOUNTER → 2024-07-11 11:33 | Outpatient (BNVA) | payer OTHER, SELFPAY | PROVIDERS: PCP Physician Assistant; Visit Provider Psychiatry & Neurology Psychiatry | DX: F33.9 Major depressive disorder, recurrent, unspecified (principal); F40.10 Social phobia, unspecified; F45.22 Body dysmorphic disorder; Z71.89 Other specified counseling | CPT/HCPCS: 99212 ==

== ENCOUNTER 2024-09-05 11:55 | Outpatient (AMB) | payer OTHER, SELFPAY ==
--- NOTE | 2024-09-05 12:11 | A.OFFPSYCH_ITS ---
Intake Intake Visit Reasons: depression Allergies Anesthetics - Amide Type - Select A [ANESTHETICS - AMIDE TYPE] Allergy (Severe, Verified 05/20/24 10:32) Hyperthermia from general anesthesia Anesthetics - Ameena Type- Parabens [ANESTHETICS - AMEENA TYPE- PARABENS] Allergy (Severe, Verified 05/20/24 10:32) hyperthermia from general anesthesia General anesthesias Allergy (Severe, Verified 05/20/24 10:32) malignant hyperthermia-age 9 at [facility],[place] [place] List - Last Reconciled 09/05/24 by Frank Sorto MD buprenorphine-naloxone 2-0.5 mg 1 film sublingual DAILY buprenorphine-naloxone 8-2 mg 1 film sublingual DAILY cariprazine 3 mg PO DAILY docusate sodium (Colace) 100 mg PO DAILY ergocalciferol (vitamin D2) 1,250 mcg PO QWEEK 3 months esketamine (Spravato) 0 mg intranasal gabapentin 100 - 200 mg (1 - 2 x 100 mg) PO TID levothyroxine 137 mcg PO DAILY 90 days propranolol 10 mg PO DAILY PRN simvastatin 10 mg PO BEDTIME 90 days vortioxetine 20 mg PO DAILY HPI- Psychiatric Chief Complaint: depression HPI Narrative: Patient seen psychiatric follow-up. Patient notes no evidence of abnormal movement she does feel less anxious since being on gabapentin no evidence of abuse or tolerance. Patient remains sober she is on Suboxone 2 mg continues to use spravato 1 time a week. She remains on Trintellix 20 mg Vraylar 3 mg she is not overly depressed has been thinking about trying to return to work part-time. No SI No new medical concerns Past Psychiatric History: There is a history of significant depressive symptoms past treatment with ECT past treatment with multiple SSRIs Thelma Curiel. Patient does have a history of significant suicide attempt Mental Status Exam Mental Status Exam Narrative: Mental Status Exam Narrative: Appearance: Casually dressed Behavior: Cooperative appropriate psychomotor: Within normal limits Speech: Normal volume and prosody Thought proccess logical and goal-directed Thought content: Future oriented focused on the fact that she did have a date with someone and that was quite unusual Has had some thoughts to return to work part-time some anxiety regarding this Mood: Feeling better some anxiety Affect: Appropriate to mood full affect SI:denies HI:denies VH/AH:none Delusions: None Insight/judgment: Good insight and judgment Memory/cog: Intact Assessment and Plan Assessment & Plan (1) Major depression, recurrent, chronic: Status: Acute Code(s): F33.9 - Major depressive disorder, recurrent, unspecified (2) Social anxiety disorder: Status: Acute Code(s): F40.10 - Social phobia, unspecified (3) Body dysmorphic disorder: Status: Acute Code(s): F45.22 - Body dysmorphic disorder Plan Continue present plan of care no abnormal movements noted on exam on aims no movement noted. Patient aware of potential long-term side effects Discussed issues related to potential work [facility] fears regarding facing obstacles and dealing with her significant anxiety Medications: Changed From gabapentin 100 - 200 mg (1 - 2 x 100 mg) PO TID 180 caps 0RF To gabapentin 100 - 200 mg (1 - 2 x 100 mg) PO TID 180 caps 1RF 90 days Refilled vortioxetine 20 mg PO DAILY 90 tabs 1RF cariprazine 3 mg PO DAILY 90 caps 1RF Counseling and coordination of Care Pt. Self Management counseling: Behavior activation and Cognitive restructuring Medication management counseling: Effectiveness, Side effects and Dosing range Details: I spent [39] minutes reviewing the record, seeing the patient and documenting in the medical record. Counseling provided to the patient/caregiver as outlined below. Addressed patient/caregiver concerns regarding current medication regime including effective adherence. Addressed patient/caregiver concerns regarding diagnosis and prognosis including accuracy of diagnosis, prognosis over time, impact of diagnosis. Addressed patient/caregiver concerns regarding impact of recent stressors. [facility] Medical History Tobacco dependence Tubulovillous adenoma Body dysmorphic disorder Social anxiety disorder Major depression, recurrent, chronic History of electroconvulsive therapy Malignant hyperthermia due to anesthesia Surgical History Hx of colonoscopy Hx of parotidectomy History of open reduction and internal fixation (ORIF) procedure Family History Father Stroke Mother Ovarian cancer Brother Asthma Sister Hyperthyroidism Social History Housing: House Are you a primary home visit field care manager to a significant other at home: No Do you presently have visiting nurse or other home services: No Alcohol intake: former Patient Tobacco Use Status: Former Tobacco user e-Cigarette/Vaping Use: Never Used Second Hand Smoke Exposure: No Substance Use Type: Prescription Drugs service: No Current occupational status: unemployed Cognitive needs: No Hearing needs: No Vision needs: No Social History: The patient is living with her mother 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
== END 2024-09-05 13:01 | disposition home or self-care (01) ==
LOC: HO.HOP 11:55
PROVIDERS: PCP Physician Assistant; Visit Provider Psychiatry & Neurology Psychiatry
DX: F33.9 Major depressive disorder, recurrent, unspecified (principal); F40.10 Social phobia, unspecified; F45.22 Body dysmorphic disorder
CPT/HCPCS: 90833; 99213

== ENCOUNTER → 2024-09-05 11:55 | Outpatient (BNVA) | payer OTHER, SELFPAY | PROVIDERS: PCP Physician Assistant; Visit Provider Psychiatry & Neurology Psychiatry | DX: F33.9 Major depressive disorder, recurrent, unspecified (principal); F40.10 Social phobia, unspecified; F45.22 Body dysmorphic disorder; Z79.899 Other long term (current) drug therapy | CPT/HCPCS: 99212 ==

== ENCOUNTER 2024-10-09 12:43 | Outpatient (REF) | payer OTHER, SELFPAY ==
--- NOTE | ~2024-10-09 | US_ITS ---
EXAMINATION: MM DIAGNOSTIC DIGITAL BREAST TOMOSYNTHESIS, BILATERAL Limited left breast ultrasound. CLINICAL INFORMATION: 6 month follow-up for focal asymmetry in the upper central right breast without sonographic correlate and six-month follow-up for left breast complicated cyst versus solid mass at 2:00 3 cm from the nipple. COMPARISON: Mammography: Priors on PACS. TECHNIQUE: Digital breast tomosynthesis is performed in both the craniocaudal and mediolateral oblique views along with computer-aided detection (CAD). Synthesized 2D images are generated from the tomosynthesis. FINDINGS: The breasts are heterogeneously dense, which may obscure small masses (ACR BI-RADS breast composition Category c). Right: Previously seen focal asymmetry in the upper central breast middle to posterior depth is slightly less conspicuous not significantly changed from prior mammograms. No suspicious calcifications or other abnormal findings. Left: Targeted color Doppler ultrasound scanning at 2:00 3 cm from the nipple demonstrates again seen hypoechoic oval solid mass versus complicated cyst measuring 3 x 3 x 3 mm not significantly changed from prior ultrasound. US/US breast LT limited mamm only IMPRESSION: Right: Focal asymmetry in the upper central breast was conspicuous from priors and without prior sonographic correlate. Recommend 6 month follow-up for further evaluation of stability. LEFT: Solid mass versus complicated cyst at 2:00 3 cm from the nipple on ultrasound. Recommend 6 month follow-up for further evaluation of stability. ASSESSMENT: BI-RADS BI-RADS 3 - Probably benign finding(s) - 6 month follow-up suggested RECOMMENDATION: 6 Month F/U Results were provided to the patient at time of visit by the technologist. This patient's information was entered into a reminder system with a target due date for their next mammogram. Electronically signed by: Amrita Soriano DO 10/09/2024 01:36 PM EDT
== END 2024-10-09 12:44 | disposition home or self-care (01) ==
LOC: HO.MAMMO 12:43
PROVIDERS: PCP Physician Assistant; Visit Provider Physician Assistant
DX: R92.2 Inconclusive mammogram (principal); N60.02 Solitary cyst of left breast
CPT/HCPCS: 76642; 77061; 77065

== ENCOUNTER → 2024-10-09 13:00 | Outpatient (BNV) | payer OTHER, SELFPAY | PROVIDERS: PCP Physician Assistant; Visit Provider Internal Medicine | DX: R92.331 Mammographic heterogeneous density, right breast (principal); N63.23 Unspecified lump in the left breast, lower outer quadrant | CPT/HCPCS: 76642; 77065; G0279 ==

== ENCOUNTER 2024-11-14 07:39 | Outpatient (REF) | payer OTHER, SELFPAY ==
[2024-11-14 07:59] LABS: Hematocrit 40.9 % (37.0-47.0); Mean Corpuscular HGB Conc 34.2 g/dl (31.0-35.0); Mean Corpuscular Volume 90.7 fL (80.0-98.0); Mean Platelet Volume 9.1 fL (9.4-12.3); Platelet Count 218 X10*3/uL (160-400); Red Blood Count 4.51 X10*6/uL (4.20-5.50); Red Cell Distribution Width 12.8 % (11.0-16.0); White Blood Count 5.4 X10*3/uL (4.8-10.8)
[2024-11-14 08:29] LABS: Alanine Aminotransferase 20 U/L (0-31); Albumin Level 4.5 g/dL (3.5-5.0); Alkaline Phosphatase 71 U/L (39-117); Anion Gap 11 (12-20); Aspartate Amino Transferase 21 U/L (5-31); Bilirubin Total 0.4 mg/dL (0.0-1.0); Blood Urea Nitrogen 15 mg/dL (9-16); Calcium 9.6 mg/dL (8.4-10.2); Carbon Dioxide 28 mmol/L (22-29); Chloride 106 mmol/L (96-108); Cholesterol 174 mg/dL (<200); Estimated Glomerular Filt Rate > 60; Glucose Fasting 99 mg/dL (60-99); HDL Cholesterol 54 mg/dL (>40); LDL Cholesterol Calculated 103 mg/dL (<100); Potassium 4.3 mmol/L (3.3-5.1); Sodium 141 mmol/L (135-145); Total Protein 6.9 g/dL (6.5-8.0); Triglycerides 89 mg/dL (<150)
[2024-11-14 08:45] LABS: TSH reflex Free T4 0.04 uIU/mL (0.32-4.0); Vitamin D 25-OH Total 62.3 ng/mL (>30)
[2024-11-14 09:57] LABS: Free T4 (Free Thyroxine) 1.27 ng/dL (0.71-1.85)
== END 2024-11-14 07:40 | disposition home or self-care (01) ==
LOC: HO.LAB 07:39
PROVIDERS: PCP Physician Assistant; Visit Provider Physician Assistant
DX: E78.2 Mixed hyperlipidemia (principal); E55.9 Vitamin D deficiency, unspecified; E03.9 Hypothyroidism, unspecified
CPT/HCPCS: 36415; 80053; 80061; 82306; 84439; 84443; 85027

== ENCOUNTER 2024-11-18 08:55 | Outpatient (AMB) | payer OTHER, SELFPAY ==
--- NOTE | 2024-11-18 08:58 | MHC.PC.OV ---
Vital Signs 11/18/24 09:03 Height 5 ft 8 in Weight 174 lb 6 oz BMI 26.5 BP 112/76 Blood Pressure Location Lt brachial Position Sitting Pulse 86 Pulse Source Pulse Oximeter Temp 97.1 F Temp Source Temporal Artery Scan Pulse Oximetry (%) 96 Oxygen Delivery Method Room Air Intake Visit Reasons: ANNUAL Survey Methodologist Required: No Accompanied by: Self / Same As Patient Allergies Anesthetics - Amide Type - Select A (ANESTHETICS - AMIDE TYPE) Allergy (Severe, Verified 11/18/24 09:12) Hyperthermia from general anesthesia Anesthetics - Ameena Type- Parabens (ANESTHETICS - AMEENA TYPE- PARABENS) Allergy (Severe, Verified 11/18/24 09:12) hyperthermia from general anesthesia General anesthesias Allergy (Severe, Verified 11/18/24 09:12) malignant hyperthermia-age 9 at T and A,no T and A done,[facility] [place] Medication List - Last Reconciled 11/18/24 by Александр Chao PA-C buprenorphine-naloxone 2-0.5 mg 1 film sublingual DAILY buprenorphine-naloxone 8-2 mg 1 film sublingual DAILY cariprazine 3 mg PO DAILY docusate sodium (Colace) 100 mg PO DAILY ergocalciferol (vitamin D2) 1,250 mcg PO QWEEK 3 months esketamine (Spravato) 0 mg intranasal gabapentin 100 - 200 mg (1 - 2 x 100 mg) PO TID 90 days levothyroxine 137 mcg PO DAILY 90 days propranolol 10 mg PO DAILY PRN simvastatin 10 mg PO BEDTIME 90 days vortioxetine 20 mg PO DAILY Tobacco use date assessed: 11/18/24 Dental Screening Dental Screen Date: 11/18/24 Did you have a dental visit in the last 12 months?: Yes Did you have a dental problem in the last 6 months where you did not have access to dental care?: No Was dental information given to patient?: Patient has dentist HPI ANNUAL HPI Details Patient is a 54-year-old female here today for a an annual physical Patient has a past medical history significant for major depressive disorder, social anxiety, history of opiate use disorder, tobacco dependency, hypothyroidism, hyperlipidemia. Concern--> patient reports she does use famotidine/Pepcid [id number] for her GERD symptoms and would like this to be prescribed. .. Major depressive disorder: Continues to follow psychiatry. Now doing ketamin treatment for her Depression and she feels it is very helpful for her mood. Also has opiate dependency thus continues on Suboxone at a bit of a higher dose now. .. .. Hyperlipidemia: Most recent lipid panel showing much improved total cholesterol and LDL, continues on statin therapy without side effect. .. Hypothyroidism: Continues on daily use of levothyroxine 137mcg, most recent TSH was low at 0.04. Will reduce her levothyroxine dose to 112 mcg and recheck TSH in 6 weeks.. 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: Has been quite awhile since she has gotten a Pap screening and she is willing to be referred to video games storywriter Vaccines:: Up-to-date with COVID, flu, pneumonia and tetanus vaccines Laboratory Tests 05/15/24 11/14/24 11:10 07:47 RBC 4.51 Hgb 14.0 Fasting Glucose 105 H 99 TSH 0.69 0.04 L PFSH Medical History Tobacco dependence Tubulovillous adenoma Body dysmorphic disorder Social anxiety disorder Major depression, recurrent, chronic History of electroconvulsive therapy Malignant hyperthermia due to anesthesia Surgical History Hx of colonoscopy Hx of parotidectomy History of open reduction and internal fixation (ORIF) procedure Family History Father Stroke Mother Ovarian cancer Brother Asthma Sister Hyperthyroidism Social History Housing: House Are you a primary live in caregiver to a significant other at home: No Do you presently have visiting nurse or other home services: No Alcohol intake: former Patient Tobacco Use Status: Former Tobacco user e-Cigarette/Vaping Use: Never Used Second Hand Smoke Exposure: No Substance Use Type: Prescription Drugs service: No Current occupational status: unemployed Cognitive needs: No Hearing needs: No Vision needs: No Questionnaire PHQ-9 Over the last 2 weeks, how often have you been bothered by any of the following problems? 1. Little interest or pleasure in doing things: more than half the days 2. Feeling down, depressed, or hopeless: more than half the days 3. Trouble falling or staying asleep, or sleeping too much: more than half the days 4. Feeling tired or having little energy: more than half the days 5. Poor appetite or overeating: more than half the days 6. Feeling bad about yourself - or that you are a failure or have let yourself or your family down: nearly every day 7. Trouble concentrating on things, such as reading the newspaper or watching television: more than half the days 8. Moving or speaking so slowly that other people could have noticed. Or the opposite - being so fidgety or restless that you have been moving around a lot more than usual: not at all 9. Thoughts that you would be better off or of hurting yourself in some way: not at all Total score: 15 Depression Screening Interpretation: Positive Depression Screening Follow-up: Existing condition and In treatment Depression Screening Done: Yes [id number] - PHQ-9 Billing: Yes Source: Developed by Drs. Nicola Alvarado, Natalie Downs, Javi Cardenas and colleagues, with an educational claude from [employer]. Thrive Questionnaire Date Thrive assessed: 11/18/24 I am a: Patient What is your living situation today?: I have a steady place to live Within the past 12 months, did the food you bought not last and you didn't have the money to get more?: Never true Within the past 12 months, did you worry whether your food would run out before you got money to buy more?: Never true Do you have trouble paying for medicines?: No Do you have trouble getting transportation to medical appointments?: No Do you have trouble paying your heating and electricity bill?: No Do you have trouble taking care of your child, family member or friend?: No Do you have trouble with day-to-day activities such as bathing, preparing meals, shopping, managing finances, etc.?: No Are you currently unemployed and looking for a job?: Yes Are you interested in more education?: No Please select the resources that you would like help with: None Currently or been in a relationship where the following occur: No concerns reported THRIVE Score: 0 AUDIT C Alcohol Use Questionnaire (AUDIT-C) 1. How often do you have a drink containing alcohol?: Never 3. How often do you have six or more drinks on one occasion?: Never Total Score: 0 JESUS-7 AMB Questionnaire JESUS-7 Date JESUS - 7 assessed: 11/18/24 Feeling nervous, anxious, or on edge: 2 = More than half the days Not being able to stop or control worryin = More than half the days Worrying too much about different things: 2 = More than half the days Trouble relaxin = More than half the days Being so restless that it is hard to sit still: 2 = More than half the days Becoming easily annoyed or irritable: 2 = More than half the days Feeling afraid as if something awful might happen: 2 = More than half the days Total JESUS-7 score (0-4 normal; 5-9 mild; 10-14 moderate; 15-21 severe): 14 Source: Developed by Drs. Nicola Alvarado, Natalie Downs, Javi Cardenas and colleagues, with an educational claude from [employer]. JESUS-7 Assessment Billing JESUS-7 Assessment Tool: JESUS-7 Assessment 02866 Review of Systems Const Denies body aches, Denies chills, Denies excessive sweating, Denies fatigue, Denies fever(s) and Denies headache(s) Eyes Denies blurry vision ENT Denies dysphagia, Denies vertigo, Denies dizziness, Denies headache(s), Denies hearing loss and Denies tinnitus Card Denies chest pain, Denies chest pain with activity, Denies syncope, Denies irregular heart rhythm and Denies dyspnea Resp Denies chest congestion, Denies cough, Denies hemoptysis, Denies dyspnea and Denies wheezing GI Denies abdominal pain, Denies melena, Denies hematochezia, Denies coffee ground emesis, Denies dysphagia, Denies diarrhea, Denies nausea and Denies vomiting Denies urinary frequency, Denies dysuria, Denies urinary hesitancy and Denies urinary urgency Musc Denies arthralgias, Denies limited range of motion, Denies muscle cramps and Denies muscle weakness Skin/Breast Denies rash and Denies skin ulcer Neuro Denies Abnormal speech present, Denies confusion, Denies vertigo, Denies dizziness, Denies syncope, Denies headache(s), Denies memory loss and Denies seizure-like activity Psych Denies anxiety, Denies confusion, Denies depression, Denies memory loss, Denies panic attacks and Denies paranoia Endo Denies excessive sweating, Denies fatigue, Denies flushing, Denies polydipsia and Denies polyuria Aller/Immun Denies wheezing Physical exam (Primary Care) Vital Signs: Last Vital Signs Temp 97.1 F 11/18/24 09:03 Pulse 86 11/18/24 09:03 BP 112/76 11/18/24 09:03 Pulse Ox 96 11/18/24 09:03 Oxygen Delivery Method Room Air 11/18/24 09:03 BMI result Body Mass Index 26.5 Tobacco/Smoking Status: Tobacco use Status Tobacco use date assessed 11/18/24 11/18/24 09:00 Patient Tobacco Use Status Former Tobacco user 11/18/24 09:00 e-Cigarette/Vaping Use Never Used 11/18/24 09:00 PHQ-9: PHQ-9 Score PHQ-9: Total score 15 11/18/24 13:41 Depression Screening Interpretation: Positive Depression Screening Follow-up: Existing condition and In treatment Thrive Assessment: Date of Thrive Assessment Date Thrive assessed 11/18/24 11/18/24 09:00 Currently or been in a relationship where the following occur: No concerns reported Const General: cooperative, comfortable, no acute distress, alert and awake; No confusion Orientation/consciousness: oriented to person, oriented to place, patient oriented x3 and No confusion HENMT Head: Yes normocephalic Ears: external ears normal and TM's normal bilaterally Face and sinus: No sinus tenderness Mouth: Normal oral and palatal mucosa present and tongue normal Teeth and gingiva: dentition normal and gingiva normal Throat: Yes posterior oropharynx normal, Yes tonsils normal and Yes uvula midline Eyes Conjunctivae: conjunctivae normal Sclerae: sclerae normal Pupils: Equal, round and reactive pupils present EOM: EOMs intact bilaterally Direct Ophthalmoscopy: No no photophobia Neck Neck: Yes no lymphadenopathy, No tender and Yes no JVD Thyroid: Thyroid normal Carotids: no bruits Chest Chest palpation & inspection: no tenderness Resp Effort & Inspection: normal respiratory effort, no audible wheezes, not labored and no stridor Auscultation: no crackles, no rales, no rhonchi and no wheezes Cardio Jugular venous distension: no JVD Rate: regular rate, not bradycardic and not tachycardic Rhythm: regular rhythm Bruits: no carotid bruits Peripheral pulses: Peripheral pulses 2+ throughout GI Inspection: Yes normal to inspection, No abdominal wall ecchymosis and No visible herniation Palpation (GI): Soft to palpation, nontender, no guarding, not rigid and No hepatosplenomegaly present Auscultation: normoactive bowel sounds General: Yes no CVA tenderness Back/Spine/Pelvis Back: no CVA tenderness and No back tenderness Cervical Spine: cervical ROM normal Thoracic/Lumbar Spine: thoracic and lumbar spine normal to inspection, straight leg raise negative bilaterally, No thoraco-lumbar ROM limited and No lumbar spinal tenderness Skin Lesions: no lesions Rashes: no rashes Wounds: no wounds Neuro General: oriented to person, oriented to place, patient oriented x3, CN's II-XI intact bilaterally and No confusion Cranial nerves: Yes Equal, round and reactive pupils present and Yes Normal accommodation reflex present Cognition (Neuro): normal cognition Speech: No Abnormal speech present Gait exam (Neuro): Normal gait present Motor exam (neuro): 5/5 motor strength present throughout Extrem Right upper extremity: full ROM; no cyanosis Left upper extremity: full ROM; no cyanosis Right lower extremity: no edema Left lower extremity: no edema Psych Appearance: grossly normal Mental Status: mental status grossly normal Affect: normal affect Attitude: cooperative Thought process: Normal thought process present Coding Level of Care Code Est Pt Prev Care 40-64y(77767) Diagnoses Annual physical exam Z00.00 Gastroesophageal reflux disease without esophagitis K21.9 Esophagitis presence: without esophagitis Moderate depressive disorder F32.1 Opioid dependence in remission F11.21 Substance use status: in remission Mixed hyperlipidemia E78.2 Hyperlipidemia type: mixed hyperlipidemia Hypothyroidism, unspecified type E03.9 Hypothyroidism type: unspecified Additional Codes JESUS-7 Assessment Billing - JESUS-7 Assessment Tool: JESUS-7 Assessment [id number] ([id number]) PHQ-9 - 78482 - PHQ-9 Billing: Yes ([id number]) Assessment & Plan Assessment & Plan (1) Annual physical exam: Code(s): Z00.00 - Encounter for general adult medical examination without abnormal findings Category: Medical Plan: As per HPI (2) GERD (gastroesophageal reflux disease): Code(s): K21.9 - Gastro-esophageal reflux disease without esophagitis Category: Medical Qualifiers: Esophagitis presence: without esophagitis Qualified Code(s): K21.9 - Gastro-esophageal reflux disease without esophagitis Plan: Patient will like prescription famotidine to help reduce her GERD symptoms as needed. (3) Moderate depressive disorder: Code(s): F32.1 - Major depressive disorder, single episode, moderate Category: Medical Plan: Patient's PHQ-9 score positive for depression which has been existing condition for her. She continues to see a mental health therapist and a psychiatrist who manages her mental health medications. (4) Opiate dependence: Code(s): F11.20 - Opioid dependence, uncomplicated Category: Medical Qualifiers: Substance use status: in remission Qualified Code(s): F11.21 - Opioid dependence, in remission Plan: Patient continues on Suboxone and has been abstaining from any street opiates feel over the last several years. (5) HLD (hyperlipidemia): Code(s): E78.5 - Hyperlipidemia, unspecified Category: Medical Qualifiers: Hyperlipidemia type: mixed hyperlipidemia Qualified Code(s): E78.2 - Mixed hyperlipidemia Plan: Patient's most recent lipid panel showing excellent control over total cholesterol and LDL. Will continue her current dose of statin therapy with goal LDL to remain below 130. (6) Hypothyroidism: Code(s): E03.9 - Hypothyroidism, unspecified Category: Medical Qualifiers: Hypothyroidism type: unspecified Qualified Code(s): E03.9 - Hypothyroidism, unspecified Plan: Patient's most recent TSH low at 0.04. Will reduce her dose of levothyroxine to 112 mcg and recheck TSH in 6 weeks Medications: New levothyroxine (Levoxyl) 112 mcg PO DAILY 30 tabs 1RF 30 days E03.9 - Hypothyroidism, unspecified famotidine 20 mg PO DAILY 90 tabs 1RF 90 days K21.9 - Gastro-esophageal reflux disease without esophagitis On Hold levothyroxine Hold Comment: Doctor's Order 137 mcg PO DAILY 90 days 90 tabs 2RF E03.9 - Hypothyroidism, unspecified
[2024-11-18 09:03] VITALS: BP 112/76; PULSE 86; TEMP 36.2; O2SAT 96; BMI 26.5
== END 2024-11-18 09:25 | disposition home or self-care (01) ==
LOC: HO.HMCH 08:55
PROVIDERS: PCP Physician Assistant; Visit Provider Physician Assistant
DX: Z00.00 Encounter for general adult medical examination without abnormal findings (principal); K21.9 Gastro-esophageal reflux disease without esophagitis; F32.1 Major depressive disorder, single episode, moderate; F11.21 Opioid dependence, in remission; E78.2 Mixed hyperlipidemia; E03.9 Hypothyroidism, unspecified

== ENCOUNTER → 2024-11-18 08:55 | Outpatient (BNVA) | payer OTHER, SELFPAY | PROVIDERS: PCP Physician Assistant; Visit Provider Physician Assistant | DX: Z00.00 Encounter for general adult medical examination without abnormal findings (principal); F41.9 Anxiety disorder, unspecified; E03.9 Hypothyroidism, unspecified; E78.5 Hyperlipidemia, unspecified; K21.9 Gastro-esophageal reflux disease without esophagitis; F32.1 Major depressive disorder, single episode, moderate; F11.21 Opioid dependence, in remission; E78.2 Mixed hyperlipidemia | CPT/HCPCS: 96127; 99396 ==

== ENCOUNTER 2024-11-24 11:54 | Outpatient (AMB) | payer OTHER, SELFPAY ==
--- NOTE | 2024-11-24 12:31 | A.OFFPSYCH_ITS ---
Intake Intake Visit Reasons: depression Allergies Anesthetics - Amide Type - Select A (ANESTHETICS - AMIDE TYPE) Allergy (Severe, Verified 11/18/24 09:12) Hyperthermia from general anesthesia Anesthetics - Ameena Type- Parabens (ANESTHETICS - AMEENA TYPE- PARABENS) Allergy (Severe, Verified 11/18/24 09:12) hyperthermia from general anesthesia General anesthesias Allergy (Severe, Verified 11/18/24 09:12) malignant hyperthermia-age 9 at T and A,no T and A done,[facility] [place] HPI- Psychiatric Chief Complaint: depression HPI Narrative: Patient seen psychiatric follow-up. Patient remains on spravato 1 time a week Vraylar BuSpar b.i.d. Trintellix. Patient feels somewhat disappointed by [facility] which had [facility] help but feels like had not been quite helpful for her. Remains future oriented but prone toward melancholy body dysmorphia keeps her away from others Past Psychiatric History: There is a history of significant depressive symptoms past treatment with ECT past treatment with multiple SSRIs Thelma Curiel. Patient does have a history of significant suicide attempt Mental Status Exam Mental Status Exam Narrative: Mental Status Exam Narrative: Appearance: Casually dressed Behavior: Cooperative appropriate psychomotor: Within normal limits Speech: Normal volume and prosody Thought proccess logical and goal-directed Thought content: Future oriented focused on treatment remaining depressed feeling disappointed by [facility] was considering working with the nursing board Has had some thoughts to return to work part-time some anxiety regarding this Mood: Feeling better some anxiety Affect: Appropriate to mood full affect SI:denies HI:denies VH/AH:none Delusions: None Insight/judgment: Good insight and judgment Memory/cog: Intact Assessment and Plan Assessment & Plan (1) Major depression, recurrent, chronic: Status: Acute Code(s): F33.9 - Major depressive disorder, recurrent, unspecified (2) Social anxiety disorder: Status: Acute Code(s): F40.10 - Social phobia, unspecified (3) Body dysmorphic disorder: Status: Acute Code(s): F45.22 - Body dysmorphic disorder Plan Start BuSpar for augmentation Vraylar 3 mg Trintellix 20 mg again urged patient to be seen in regular counseling to deal with her chronic social anxiety/body dysmorphia which is hindering her recovery Medications: New buspirone 10 mg PO BID 60 tabs 2RF Counseling and coordination of Care Details-Self Mgmt counseling: Issues related to chronic anxiety anxiety that preventing her from engaging more Medication management counseling: Effectiveness and Side effects Details-Med Mgmt counseling: No evidence of tardive dyskinesia on exam Details: I spent [] minutes reviewing the record, seeing the patient and documenting in the medical record. Counseling provided to the patient/caregiver as outlined below. Addressed patient/caregiver concerns regarding current medication regime including effective adherence. Addressed patient/caregiver concerns regarding diagnosis and prognosis including accuracy of diagnosis, prognosis over time, impact of diagnosis. Addressed patient/caregiver concerns regarding impact of recent stressors. PFS Medical History Tobacco dependence Tubulovillous adenoma Body dysmorphic disorder Social anxiety disorder Major depression, recurrent, chronic History of electroconvulsive therapy Malignant hyperthermia due to anesthesia Surgical History Hx of colonoscopy Hx of parotidectomy History of open reduction and internal fixation (ORIF) procedure Family History Father Stroke Mother Ovarian cancer Brother Asthma Sister Hyperthyroidism Social History Housing: House Are you a primary hiv/aids care nurse to a significant other at home: No Do you presently have visiting nurse or other home services: No Alcohol intake: former Patient Tobacco Use Status: Former Tobacco user e-Cigarette/Vaping Use: Never Used Second Hand Smoke Exposure: No Substance Use Type: Prescription Drugs service: No Current occupational status: unemployed Cognitive needs: No Hearing needs: No Vision needs: No Social History: The patient is living with her mother she is on disability 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
== END 2024-11-24 12:46 | disposition home or self-care (01) ==
LOC: HO.HOP 11:54
PROVIDERS: PCP Physician Assistant; Visit Provider Psychiatry & Neurology Psychiatry
DX: F33.9 Major depressive disorder, recurrent, unspecified (principal); F40.10 Social phobia, unspecified; F45.22 Body dysmorphic disorder
CPT/HCPCS: 99214

== ENCOUNTER → 2024-11-24 11:54 | Outpatient (BNVA) | payer OTHER, SELFPAY | PROVIDERS: PCP Physician Assistant; Visit Provider Psychiatry & Neurology Psychiatry | DX: F45.22 Body dysmorphic disorder (principal); F33.9 Major depressive disorder, recurrent, unspecified | CPT/HCPCS: 99212 ==

== ENCOUNTER 2025-01-14 14:35 | Outpatient (REF) | payer OTHER, SELFPAY ==
[2025-01-14 16:22] LABS: Free T4 (Free Thyroxine) 1.04 ng/dL (0.71-1.85)
== END 2025-01-14 14:36 | disposition home or self-care (01) ==
LOC: HO.LAB 14:35
PROVIDERS: PCP Physician Assistant
DX: Z00.00 Encounter for general adult medical examination without abnormal findings (principal); E03.9 Hypothyroidism, unspecified
CPT/HCPCS: 36415; 84439; 84443

== ENCOUNTER 2025-02-23 13:24 | Outpatient (AMB) | payer OTHER, SELFPAY ==
--- NOTE | 2025-02-23 14:25 | A.OFFPSYCH_ITS ---
Intake Intake Visit Reasons: depression Allergies Anesthetics - Amide Type - Select A (ANESTHETICS - AMIDE TYPE) Allergy (Severe, Verified 11/18/24 09:12) Hyperthermia from general anesthesia Anesthetics - Ameena Type- Parabens (ANESTHETICS - AMEENA TYPE- PARABENS) Allergy (Severe, Verified 11/18/24 09:12) hyperthermia from general anesthesia General anesthesias Allergy (Severe, Verified 11/18/24 09:12) malignant hyperthermia-age 9 at T and A,no T and A done,[facility] [place] Medication List - Last Reconciled 02/23/25 by Frank Sorto MD buprenorphine-naloxone 2-0.5 mg 1 film sublingual DAILY buspirone 10 mg PO BID 3 months cariprazine 3 mg PO DAILY docusate sodium (Colace) 100 mg PO DAILY ergocalciferol (vitamin D2) 1,250 mcg PO QWEEK 3 months esketamine (Spravato) 0 mg intranasal famotidine 20 mg PO DAILY 90 days levothyroxine (Levoxyl) 112 mcg PO DAILY 30 days levothyroxine 137 mcg PO DAILY 90 days Held on 11/18/24. Instructions: Doctor's Order propranolol 10 mg PO DAILY PRN simvastatin 10 mg PO BEDTIME 90 days vortioxetine 20 mg PO DAILY HPI- Psychiatric Chief Complaint: depression HPI Narrative: Patient seen psychiatric follow-up. JESUS more elevated than PHQ-9 anxiety more difficult in depressive sy on exam. Trintellix 20 mg mptoms. 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 Patient continues on low-dose Suboxone she is on weekly spravato. Patient continues on Vraylar 3 mg no abnormal movements noted by patient or by this life underwriter or other providers. Patient is also on Trintellix and BuSpar has chronic social anxiety Past Psychiatric History: There is a history of significant depressive symptoms past treatment with ECT past treatment with multiple SSRIs Thelma Curiel. Patient does have a history of significant suicide attempt Mental Status Exam Mental Status Exam Narrative: Mental Status Exam Narrative: Appearance: Casually dressed Behavior: Cooperative appropriate psychomotor: Within normal limits Speech: Normal volume and prosody Thought proccess logical and goal-directed Thought content: Future oriented focused on treatment managing anxiety know she should be in regular therapy to help manage anxiety symptoms. Has been reaching out to try and return to work Mood: Feeling better ongoing anxiety Affect: Appropriate to mood full affect SI:denies HI:denies VH/AH:none Delusions: None Insight/judgment: Good insight and judgment Memory/cog: Intact Assessment and Plan Assessment & Plan (1) Social anxiety disorder: Status: Acute Code(s): F40.10 - Social phobia, unspecified (2) Body dysmorphic disorder: Status: Acute Code(s): F45.22 - Body dysmorphic disorder (3) Major depression, recurrent, chronic: Status: Acute Code(s): F33.9 - Major depressive disorder, recurrent, unspecified Plan Discussed risks benefits alternatives of gabapentin patient will discontinue. Continue BuSpar could increase dose patient does not wish to at this time. Medications: Changed From buspirone 10 mg PO BID 60 tabs 2RF To buspirone 10 mg PO BID 180 tabs 1RF 3 months Discontinued gabapentin Discontinued Reason: Doctor's Order 100 - 200 mg (1 - 2 x 100 mg) PO TID 90 days 180 caps 1RF Counseling and coordination of Care Details-Self Mgmt counseling: Chronically self disparaging issues related to self-esteem return to work Medication management counseling: Effectiveness, Side effects and Dosing range Diagnosis and Prognosis Counseling: Impact of diagnosis on life functions and Adequacy of current interventions Details: I spent [30] minutes reviewing the record, seeing the patient and documenting in the medical record. Counseling provided to the patient/caregiver as outlined below. Addressed patient/caregiver concerns regarding current medication regime including effective adherence. Addressed patient/caregiver concerns regarding diagnosis and prognosis including accuracy of diagnosis, prognosis over time, impact of diagnosis. Addressed patient/caregiver concerns regarding impact of recent stressors. PFSH Medical History Tobacco dependence Tubulovillous adenoma Body dysmorphic disorder Social anxiety disorder Major depression, recurrent, chronic History of electroconvulsive therapy Malignant hyperthermia due to anesthesia Surgical History Hx of colonoscopy Hx of parotidectomy History of open reduction and internal fixation (ORIF) procedure Family History Father Stroke Mother Ovarian cancer Brother Asthma Sister Hyperthyroidism Social History Housing: House Are you a primary assistant child care teacher to a significant other at home: No Do you presently have visiting nurse or other home services: No Alcohol intake: former Patient Tobacco Use Status: Former Tobacco user e-Cigarette/Vaping Use: Never Used Second Hand Smoke Exposure: No Substance Use Type: Prescription Drugs service: No Current occupational status: unemployed Cognitive needs: No Hearing needs: No Vision needs: No Social History: The patient is living with her mother she is on disability 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
== END 2025-02-23 15:38 | disposition home or self-care (01) ==
LOC: HO.HOP 13:24
PROVIDERS: PCP Physician Assistant; Visit Provider Psychiatry & Neurology Psychiatry
DX: F40.10 Social phobia, unspecified (principal); F45.22 Body dysmorphic disorder; F33.9 Major depressive disorder, recurrent, unspecified
CPT/HCPCS: 99214

== ENCOUNTER → 2025-02-23 13:24 | Outpatient (BNVA) | payer OTHER, SELFPAY | PROVIDERS: PCP Physician Assistant; Visit Provider Psychiatry & Neurology Psychiatry | DX: F45.22 Body dysmorphic disorder (principal); F40.10 Social phobia, unspecified; F33.9 Major depressive disorder, recurrent, unspecified | CPT/HCPCS: 99212 ==

== ENCOUNTER 2025-04-13 09:29 | Outpatient (REF) | payer OTHER, SELFPAY ==
--- NOTE | ~2025-04-13 | MM_ITS ---
EXAMINATION(S): 1. MM DIAGNOSTIC DIGITAL BREAST TOMOSYNTHESIS, BILATERAL 2. TARGETED ULTRASOUND OF THE LEFT BREAST CLINICAL INFORMATION: This is a second 6-month follow-up of: Right: Focal asymmetry in the upper central breast without sonographic correlate Left: Incidental sonographic finding of minimally complicated cyst or solid mass at 2 o'clock position 3 cm from the nipple. COMPARISON: Comparison made to multiple prior, most recent October 09, 2024, and most remote January 01, 2020. TECHNIQUE: Digital breast tomosynthesis is performed in both the mediolateral oblique and craniocaudal views along with computer-aided detection (CAD). Synthesized 2D images are generated from the tomosynthesis. FINDINGS: BREAST COMPOSITION: The breasts are heterogeneously dense, which may obscure small masses. RIGHT BREAST: Previously suggested pliable focal asymmetry in the upper central breast middle depth is similar from first described in December 2023. No new masses, suspicious calcifications or other abnormalities are seen. LEFT BREAST: No significant masses, suspicious calcifications or other abnormalities are seen. Targeted ultrasound of the left breast was performed at the location of previously described incidental sonographic finding. The survey shows a 0.4 x 0.3 x 0.4 cm probable minimally complicated cyst at 2 o'clock position 3 cm from the nipple. Prior measurements were 0.3 x 0.3 x 0.3 cm in September 2024 and 0.4 x 0.3 x 0.3 cm in March 2024. No internal vascularity is demonstrated with color Doppler evaluation. MM/MM tomosynthesis diagnostic BI IMPRESSION: RIGHT BREAST: Pliable focal asymmetry in the upper central breast without sonographic correlate. Probably benign. A one year diagnostic mammogram follow-up is recommended. LEFT BREAST: Minimally complicated cyst at 2 o'clock position 3 cm from the nipple. Probably benign. A one year follow-up left breast ultrasound is recommended. ASSESSMENT: BI-RADS: Category 3: Probably benign RECOMMENDATION: 12 month diagnostic follow up Results were provided to the patient at time of visit by the technologist. This patient's information was entered into a reminder system with a target due date for their next mammogram. Electronically signed by: Gadiel Olivarez MD 04/13/2025 10:34 AM [facility]
== END 2025-04-13 09:30 | disposition home or self-care (01) ==
LOC: HO.MAMMO 09:29
PROVIDERS: PCP Physician Assistant; Visit Provider Physician Assistant
DX: R92.2 Inconclusive mammogram (principal)
CPT/HCPCS: 76642; 77062; 77066

== ENCOUNTER → 2025-04-13 09:35 | Outpatient (BNV) | payer OTHER, SELFPAY | PROVIDERS: PCP Physician Assistant; Visit Provider Radiology Body Imaging | DX: N63.21 Unspecified lump in the left breast, upper outer quadrant (principal) | CPT/HCPCS: 76642; 77066; G0279 ==

== ENCOUNTER 2025-05-05 13:30 | Outpatient (AMB) | payer OTHER, SELFPAY ==
--- NOTE | 2025-05-05 13:59 | A.OFFPSYCH_ITS ---
Intake Intake Visit Reasons: depression Intake Note: Patient did consent to use of scribe Allergies Anesthetics - Amide Type - Select A (ANESTHETICS - AMIDE TYPE) Allergy (Severe, Verified 11/18/24 09:12) Hyperthermia from general anesthesia Anesthetics - Ameena Type- Parabens (ANESTHETICS - AMEENA TYPE- PARABENS) Allergy (Severe, Verified 11/18/24 09:12) hyperthermia from general anesthesia General anesthesias Allergy (Severe, Verified 11/18/24 09:12) malignant hyperthermia-age 9 at [facility] [place] HPI- Psychiatric Chief Complaint: depression HPI Narrative: The patient is a 55-year-old single female with a long history of recurrent depression chronic anxiety with strong social anxiety and body dysmorphia. Patient has a history of opiate dependence has been stable for an extended period of time on low-dose Suboxone history of significant alcohol use disorder has been sober for many years. Patient also has treatment with recurrent spravato. The patient has felt significantly improved on Vraylar and has been working with [facility] to regain some form of employment she is on security disability. 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 The patient can not do TMS secondary to ear surgery as a child Past Psychiatric History: There is a history of significant depressive symptoms past treatment with ECT past treatment with multiple SSRIs Thelma Curiel. 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[place] and how she might be able to get her license back through an extended process Mood: Feeling better ongoing anxiety Affect: Appropriate to mood full affect SI:denies HI:denies VH/AH:none Delusions: None Insight/judgment: Good insight and judgment Memory/cog: Intact no abnormal movements noted on aims Assessment and Plan Assessment & Plan (1) Social anxiety disorder: Status: Acute Code(s): F40.10 - Social phobia, unspecified (2) Body dysmorphic disorder: Status: Acute Code(s): F45.22 - Body dysmorphic disorder (3) Major depression, recurrent, chronic: Status: Acute Code(s): F33.9 - Major depressive disorder, recurrent, unspecified Plan ASSESSMENT The patient has a mixture of a chronic anxiety disorder which led to substance use disorder currently stable and sober. The patient was also managing depression and anxiety with Trintellix, BuSpar, Vraylar and receiving treatment with Spravato and Suboxone. Depression which at this point seems chronic low- level to moderate but has generally been improving PLAN 1. Continue current medications: buspirone, cariprazine, Trintellix, Spravato, and Suboxone. 2. Send a 90-day prescription for buspirone to align with other medication schedules. 3. Perform blood work 4. 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 5. Schedule follow-up appointment in three months. Medications: Refilled buspirone 10 mg PO BID 180 tabs 1RF 3 months cariprazine 3 mg PO DAILY 90 caps 1RF vortioxetine 20 mg PO DAILY 90 tabs 1RF Counseling and coordination of Care Details-Self Mgmt counseling: Encourage work on social anxiety and body dysmorphia and how this interferes with functioning and can drive her past addiction Medication management counseling: Effectiveness, Side effects and Dosing range Diagnosis and Prognosis Counseling: Impact of diagnosis on life functions and Adequacy of current interventions Details-Diagnosis/Prognosis counseling: Patient has shown significant gradual improvement tolerating current regimen Details: I spent [25] minutes reviewing the record, seeing the patient and documenting in the medical record. Counseling provided to the patient/caregiver as outlined below. Addressed patient/caregiver concerns regarding current medication regime including effective adherence. Addressed patient/caregiver concerns regarding diagnosis and prognosis including accuracy of diagnosis, prognosis over time, impact of diagnosis. Addressed patient/caregiver concerns regarding impact of recent stressors. [facility] Medical History Tobacco dependence Tubulovillous adenoma Body dysmorphic disorder Social anxiety disorder Major depression, recurrent, chronic History of electroconvulsive therapy Malignant hyperthermia due to anesthesia Surgical History Hx of colonoscopy Hx of parotidectomy History of open reduction and internal fixation (ORIF) procedure Family History Father Stroke Mother Ovarian cancer Brother Asthma Sister Hyperthyroidism Social History Housing: House Are you a primary summer child caregiver to a significant other at home: No Do you presently have visiting nurse or other home services: No Alcohol intake: former Patient Tobacco Use Status: Former Tobacco user e-Cigarette/Vaping Use: Never Used Second Hand Smoke Exposure: No Substance Use Type: Prescription Drugs service: No Current occupational status: unemployed Cognitive needs: No Hearing needs: No Vision needs: No Social History: The patient is living with her mother she is on disability 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
== END 2025-05-05 13:57 | disposition home or self-care (01) ==
LOC: HO.HOP 13:30
PROVIDERS: PCP Physician Assistant; Visit Provider Psychiatry & Neurology Psychiatry
DX: F40.10 Social phobia, unspecified (principal); F45.22 Body dysmorphic disorder; F33.9 Major depressive disorder, recurrent, unspecified
CPT/HCPCS: 99214

== ENCOUNTER → 2025-05-05 13:30 | Outpatient (BNVA) | payer OTHER, SELFPAY | PROVIDERS: PCP Physician Assistant; Visit Provider Psychiatry & Neurology Psychiatry | DX: F40.10 Social phobia, unspecified (principal); F45.22 Body dysmorphic disorder; F33.9 Major depressive disorder, recurrent, unspecified; Z79.899 Other long term (current) drug therapy; Y90.9 Presence of alcohol in blood, level not specified | CPT/HCPCS: 99212 ==